=== PATIENT | female | born 1970 | race Caucasian/White ===

== ENCOUNTER 2017-02-05 17:25 | Emergency (ER) | payer MEDICAID ==
[2017-02-05] MEDS ORDERED: HYDROmorphone 1 MG/ML SYRINGE IM STA (18:03)
[2017-02-05] MEDS ORDERED: CLINDAMYCIN 150 MG CAPSULE PO STA (18:03)
[2017-02-05] MEDS ORDERED: HYDROmorphone 1 MG/ML SYRINGE ONE (18:06)
--- NOTE | 2017-02-05 18:06 | ED Physician Documentation ---
PD HPI SKIN - Stated complaint Stated Complaint: RT THIGH SORE - Chief complaint Chief Complaint: Wound - History obtained from History obtained from: Patient - History of Present Illness Timing - onset: Other (2 days of increasingly painful lesion in the right inguinal crease with spontaneous drainage today which smells bad but no measured fevers.) Review of Systems Constitutional: denies: Fever, Chills Nose: denies: Rhinorrhea / runny nose, Congestion GI: reports: Reviewed and negative PD PAST MEDICAL HISTORY - Past Medical History Cardiovascular: Hypertension Respiratory: None Neuro: Other Endocrine/Autoimmune: None GI: GERD 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 : None HEENT: None Psych: Anxiety, ADD/ADHD Musculoskeletal: Osteoarthritis, Chronic back pain Derm: None - Past Surgical History Past Surgical History: Yes General: Cholecystectomy, Hiatal hernia repair - Present Medications Home Medications: Ambulatory Orders Medication Instructions Recorded Confirmed Lisinopril 40 mg PO DAILY 01/06/15 10/07/15 Hydrocodone/Acetaminophen 1 05/27/15 10/07/15 [Hydrocodon-Acetaminoph 7.5-325] Omeprazole [Prilosec] 20 mg PO 05/27/15 10/07/15 Ranitidine HCl [Zantac] 150 mg PO DAILY 28 Days 05/31/15 10/07/15 Alprazolam [Xanax] 0.5 mg PO 10/07/15 10/07/15 Benzonatate [Tessalon] 100 mg PO TID PRN #15 capsule 10/07/15 HYDROcod/ACETAM 5/325 [[place] 5/325] 1 - 2 ea PO Q6H PRN #20 tablet 10/07/15 HYDROcod/ACETAM 5/325 [[place] 5/325] 1 - 2 ea PO Q6H PRN #20 tablet 04/05/16 Clindamycin [Cleocin] 300 mg PO Q6H 10 Days 02/05/17 - Allergies Allergies/Adverse Reactions: Allergies Allergy/AdvReac Type Severity Reaction Status Date / Time iodine Allergy Unknown Verified 02/05/17 17:49 Penicillins Allergy Nausea Verified 02/05/17 17:49 shellfish derived Allergy Unknown Verified 02/05/17 17:49 - Social History Does the pt smoke?: Yes Smoking Status: Current every day smoker Does the pt drink ETOH?: Yes Does the pt have substance abuse?: No - Immunizations Immunizations are current?: Yes - POLST Patient has POLST: No PD ED PE NORMAL - Vitals Vital signs reviewed: Yes - General General: Alert and oriented X 3, No acute distress - Abdomen Abdomen: Soft, Non tender - Derm Derm: Other (Exam done with Cinthia flores at bedside given that it is in her groin. In the right inguinal crease there is a completely drained abscess with some residual cellulitis but no significant drainage or fluctuance. A culture was sent during exam.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, Normal speech - Psych Psych: Normal mood, Normal affect Results - Vitals Vitals: Vital Signs - 24 hr 02/05/17 17:46 Temperature 36.3 C L Heart Rate 94 Respiratory 14 Rate Blood Pressure 137/91 H O2 Saturation 100 Oxygen O2 Source Room air PD MEDICAL DECISION MAKING - ED course ED course: She has an abscess that is completely self drained, but there is some residual cellulitis, culture was obtained and she was started on antibiotics. She declined home-going painkillers. Departure - Departure Disposition: Home, Self Care Clinical Impression: Abscess Condition: Good Record reviewed to determine appropriate education?: Yes Instructions: ED Abscess IandD Prescriptions: Clindamycin [Cleocin] 300 mg PO Q6H 10 Days Comments: Schedule a wound check with your physician in 2 days time (Sunday). Your blood pressure was elevated today on check in to the emergency department. This does not mean that you have hypertension, it is a common phenomenon to check into the emergency department and have elevated blood pressure. I recommend that you see your primary care physician within the week to have it rechecked when you're feeling better. As we discussed we will culture your wound, this results should be done in 48- 72 hours. If an antibiotic change is necessary we will call you. Return if worse in the meantime, especially if you develop increased pain or fevers or cannot keep down the medication.
[2017-02-05] MEDS ORDERED: CLINDAMYCIN 150 MG CAPSULE PO ONE (18:07)
[2017-02-05 18:21] VITALS: BP 148/74
== END 2017-02-05 18:19 | disposition home or self-care (01) ==
LOC: ED 17:25
DX: L02.214 Cutaneous abscess of groin (principal); L03.314 Cellulitis of groin; I10 Essential (primary) hypertension; F17.200 Nicotine dependence, unspecified, uncomplicated
CPT/HCPCS: 87070; 87205; 96372; 99283; A9270; J1170

== ENCOUNTER 2017-04-09 08:00 | Outpatient (CLI) | payer MEDICAID ==
[2017-04-12 21:41] LABS: ALPHAHYDROXYALPRAZOLAM 52 ng/mL (< 25); AMINOCLONAZEPAM NEGATIVE ng/mL (< 25); AMPHETAMINES NEGATIVE ng/mL (< 500); BARBITURATES NEGATIVE ng/mL (< 300); BENZODIAZEPINES POSITIVE ng/mL (< 100); CREATININE 40.2 mg/dL (>= 20.0); HYDROXYETHYLFLURAZEPAM NEGATIVE ng/mL (< 50); MARIJUANA METABOLITE NEGATIVE ng/mL (< 20); MEDMATCH AMINOCLONAZEPAM CONSISTENT (-); MEDMATCH AMPHETAMINES CONSISTENT (-); MEDMATCH AOH-ALPRAZOLAM INCONSISTENT (-); MEDMATCH AOH-MIDAZOLAM CONSISTENT (-); MEDMATCH AOH-TRIAZOLAM CONSISTENT (-); MEDMATCH BARBITURATES CONSISTENT (-); MEDMATCH COCAINE METAB CONSISTENT (-); MEDMATCH CODEINE CONSISTENT (-); MEDMATCH HYDROCODONE CONSISTENT (()); MEDMATCH HYDROMORPHONE CONSISTENT (()); MEDMATCH LORAZEPAM CONSISTENT (-); MEDMATCH MARIJUANA METAB CONSISTENT (-); MEDMATCH METHADONE METAB CONSISTENT (-); MEDMATCH MORPHINE CONSISTENT (-); MEDMATCH NORDIAZEPAM CONSISTENT (-); MEDMATCH NORHYDROCODONE CONSISTENT (()); MEDMATCH OXAZEPAM CONSISTENT (-); MEDMATCH OXYCODONE CONSISTENT (-); MEDMATCH PHENCYCLIDINE CONSISTENT (-); MEDMATCH TEMAZEPAM CONSISTENT (-); METHADONE METABOLITE NEGATIVE ng/mL (< 100); NORHYDROCODONE 606 ng/mL (< 50); OPIATES POSITIVE ng/mL (< 100); OXAZEPAM NEGATIVE ng/mL (< 50); OXIDANT Negative mcg/mL (< 200); PHENCYCLIDINE NEGATIVE ng/mL (< 25); PRESCRIBED DRUG 1 Hydrocodone (())
== END 2017-04-09 08:01 | disposition home or self-care (01) ==
LOC: LAB.R 08:00
PROVIDERS: ATTEND Nurse Practitioner Family
DX: G89.29 Other chronic pain (principal); Z79.891 Long term (current) use of opiate analgesic
CPT/HCPCS: 80307

== ENCOUNTER 2017-05-03 08:20 | Outpatient (CLI) | payer MEDICAID ==
--- NOTE | 2017-05-04 14:05 | Mammography Report ---
DIGITAL SCREENING MAMMOGRAM: 05/03/2017 CLINICAL INDICATION: A 47-year-old for baseline. TECHNIQUE: Routine CC and MLO projections were obtained of the breasts. FINDINGS: The breasts demonstrate scattered fibroglandular densities bilaterally. Coarse, typically benign calcifications are present. No suspicious masses, clustered microcalcifications, or regions of architectural distortion are identified. IMPRESSION: BENIGN FINDINGS. RECOMMENDATION: Routine annual screening unless otherwise clinically indicated. BIRADS CATEGORY 2 - BENIGN FINDINGS. STANDARD QUALIFYING STATEMENTS 1. This examination was reviewed with the aid of Computer-Aided Detection (CAD). 2. A negative or benign imaging report should not delay biopsy if clinically suspicious findings are present. Consider surgical consultation if warranted. More than 5% of cancers are not identified by i maging. 3. Dense breasts may obscure an underlying neoplasm. JOB #: [id number] EXT JOB #:[id number]
== END 2017-05-03 08:21 | disposition home or self-care (01) ==
LOC: DI 08:20
PROVIDERS: ATTEND Nurse Practitioner Family
DX: Z12.31 Encounter for screening mammogram for malignant neoplasm of breast (principal)
CPT/HCPCS: 77067

== ENCOUNTER 2017-09-17 08:00 | Outpatient (CLI) | payer MEDICAID | END 2017-09-17 08:01 | disposition home or self-care (01) | LOC: LAB.R 08:00 | PROVIDERS: ATTEND Nurse Practitioner Family | DX: Z79.891 Long term (current) use of opiate analgesic (principal) | CPT/HCPCS: 80307; 80321; 80346; 80361; 80365; 81599 ==

== ENCOUNTER 2017-09-28 09:26 | Outpatient (CLI) | payer MEDICAID ==
--- NOTE | 2017-09-28 14:10 | XRAY Report ---
THREE VIEW LUMBAR SPINE: 09/28/2017 CLINICAL INDICATION: Lumbar disk disease. COMPARISON: MRI of 01/23/2012. FINDINGS: AP, lateral, coned down views of the lumbar spine demonstrate minimal degenerative disk and facet disease. There is no evidence of fracture or subluxation. The bowel gas pattern appears normal. Incidental note is made of surgical clips from cholecystectomy and an IUD in the pelvis. IMPRESSION: MINIMAL DEGENERATIVE DISK AND FACET DISEASE. TD: 09/28/2017 14:08
== END 2017-09-28 09:27 | disposition home or self-care (01) ==
LOC: DI.S 09:26
PROVIDERS: ATTEND Nurse Practitioner Family
DX: M51.36 Other intervertebral disc degeneration, lumbar region (principal); M47.896 Other spondylosis, lumbar region
CPT/HCPCS: 72100

== ENCOUNTER 2017-10-06 07:45 | Outpatient (CLI) | payer MEDICAID ==
--- NOTE | 2017-10-06 13:39 | MRI Preliminary Report ---
Exam: MRI LUMBAR SPINE W/O IMPRESSION: 1. Xkdk-hf-briecxlb degenerative disk changes, slightly progressed. 2. Mild degenerative disk changes, similar. 3. Disk bulges, facet hypertrophy, and prominent epidural fat results in minimal central canal stenos is at L3-L4 and L4-L5, similar. 4. Small central disk protrusion with increased focal high intensity zone at L5-S1. This may contact the bilateral traversing S1 nerve roots. 5. Mild neural foramen stenosis at L4-L5 bilaterally and L5-S1 bilaterally. Comment: The following findings are so common in adults without low back pain that while we report th eir presence, they must be interpreted with caution and in the context of the clinical situation. (Re iva Veronica et al, Spine 2001) Prevalence of findings in patients without low back pain: Disk degeneration (any evidence): 92% Disk desiccation/T2 signal loss: 83% Disk height loss: 56% Disk bulge: 64% Disk protrusion: 32% Annular tear/high intensity zone: 38% [facility] SITE ID: [id number]
--- NOTE | 2017-10-06 15:06 | MRI Report ---
EXAM: MRI LUMBAR SPINE WITHOUT CONTRAST EXAM DATE: 10/06/2017 08:46 AM. CLINICAL HISTORY: Lumbar spine stenosis, lumbar disk disease. Left foot numbness/tingling with pain. COMPARISON: MRI 01/23/2012. TECHNIQUE: Multiplanar, multisequence T1-weighted and fluid-sensitive sequences of the lumbar spine f rom T12 to S1 without contrast. Other: None. FINDINGS: Spinal Cord: The conus terminates at T12-L1. The conus medullaris and cauda equina are unremarkable. L4 measuring 13 mm. Alignment: No scoliosis. 2-3 mm retrolisthesis at L5 on S1. Bone Marrow: Five fyi-elk-gafxvss lumbar vertebral bodies are assumed. Mild superior endplate irregul arity and likely Schmorl's node at T12, unchanged. No acute fracture. Mild fatty endplate changes at L5-S1 and minimal diskogenic edema. Disk Levels/Facets: Disk desiccation at L4-L5. Disk desiccation and mild disk height loss at L5-S1. T11-T12: Sagittal images only. Minimal disk bulge. Mild bilateral facet and ligamentum flavum hypertr ophy. Mild right and minimal left neural foramen stenosis. T12-L1: Unremarkable. L1-L2: Mild bilateral facet and ligamentum flavum hypertrophy. No stenosis. This is similar. L2-L3: Mild bilateral facet and ligamentum flavum hypertrophy, slightly progressed. Prominent epidura l fat minimally effaces the central canal. This is similar. L3-L4: Small bilobed disk bulge. Knyx-yw-xbqumxtn bilateral facet hypertrophy, slightly progressed. P rominent epidural fat contributes to minimal central canal stenosis. Minimal bilateral neural foramen stenosis. L4-L5: Small broad-based disk bulge. Mavq-ku-ohomwnfk right and moderate left facet and ligamentum fl avum hypertrophy, slightly progressed. Prominent epidural fat minimally effaces the central canal. Mi ld bilateral neural foramen stenosis. L5-S1: Small broad-based disk bulge with superimposed small central disk protrusion and increased foc al high intensity zone. Kbiw-ik-ihdvqwdk bilateral facet and ligamentum flavum hypertrophy, slightly progressed. Disk protrusion may contact the bilateral traversing S1 nerve roots. Mild bilateral neura l foramen stenosis. Musculature: Moderate fatty atrophy in the paraspinous musculature. Minimal reactive edema adjacent t o the lower lumbar facets. Other: The partially visualized retroperitoneum is unremarkable. IMPRESSION: 1. Aspk-kf-pperdlpk degenerative disk changes, slightly progressed. 2. Mild degenerative disk changes, similar. 3. Disk bulges, facet hypertrophy, and prominent epidural fat results in minimal central canal stenos is at L3-L4 and L4-L5, similar. 4. Small central disk protrusion with increased focal high intensity zone at L5-S1. This may contact the bilateral traversing S1 nerve roots. 5. Mild neural foramen stenosis at L4-L5 bilaterally and L5-S1 bilaterally. Comment: The following findings are so common in adults without low back pain that while we report th eir presence, they must be interpreted with caution and in the context of the clinical situation. (Re iva Veronica et al, Spine 2001) Prevalence of findings in patients without low back pain: Disk degeneration (any evidence): 92% Disk desiccation/T2 signal loss: 83% Disk height loss: 56% Disk bulge: 64% Disk protrusion: 32% Annular tear/high intensity zone: 38% [facility] Referring Provider Line: [phone] SITE ID: [id number]
== END 2017-10-06 07:46 | disposition home or self-care (01) ==
LOC: DI 07:45
PROVIDERS: ATTEND Nurse Practitioner Family
DX: M51.36 Other intervertebral disc degeneration, lumbar region (principal); M51.34 Other intervertebral disc degeneration, thoracic region; M47.896 Other spondylosis, lumbar region; M47.894 Other spondylosis, thoracic region; M51.27 Other intervertebral disc displacement, lumbosacral region; M47.897 Other spondylosis, lumbosacral region
CPT/HCPCS: 72148

== ENCOUNTER 2017-11-03 07:51 | Outpatient (CLI) | payer MEDICAID ==
--- NOTE | 2017-11-03 13:51 | MRI Report ---
EXAM: RIGHT ELBOW MRI WITHOUT CONTRAST EXAM DATE: 11/03/2017 08:58 AM. CLINICAL HISTORY: Two prior right elbow fractures. Last less than 2 years ago. COMPARISON: 05/04/2016. TECHNIQUE: Multiplanar, multisequence T1-weighted and fluid-sensitive sequences of the elbow without contrast. Other: None. FINDINGS: Bones: No fractures or subluxations. No marrow edema. No bone lesions. Articular Cartilage: There is focal thinning of the hyaline cartilage of the lateral half of the radi al head. There is mild thinning of the hyaline cartilage of the humeral ulnar joint. Ligaments: The ulnar collateral, lateral ulnar collateral, radial collateral, and annular ligaments a re intact. Tendons: The common flexor origin appears normal. There is high T2 signal within the common extensor origin consistent with a partial-thickness tear. There is a multiloculated cyst measuring up to 6 x 2 6 x 13 mm in the lateral head of the triceps posterior to the lateral humeral condyle and epicondyle. They appear to communicate with a partial-thickness tear of the common extensor origin. Slight increase in T2 signal in the distal triceps tendon, suggesting tendinosis or partial thickness tear. Musculature: No edema or fatty atrophy. Other: The cubital tunnel and ulnar nerve are unremarkable. No effusion. The subcutaneous tissues are unremarkable. IMPRESSION: 1. Partial-thickness tear of the common extensor origin with an adjacent multiloculated paraarticular cyst in the medial head of the triceps. 2. Tendinosis of partial-thickness tear of the distal triceps tendon. [facility]CULOS[facility]IOLOG[facility] SECTION Referring Provider Line: [phone] SITE ID: [id number]
== END 2017-11-03 07:52 | disposition home or self-care (01) ==
LOC: DI 07:51
PROVIDERS: ATTEND Orthopaedic Surgery
DX: S56.511A Strain of other extensor muscle, fascia and tendon at forearm level, right arm, initial encounter (principal); S46.311A Strain of muscle, fascia and tendon of triceps, right arm, initial encounter

== ENCOUNTER 2017-11-20 08:55 | Day surgery (SDC) | payer MEDICAID ==
[2017-11-20] MEDS ORDERED: LACTATED RINGERS 1,000 ML IV ONE (09:44)
[2017-11-20] MEDS ORDERED: MIDAZOLAM 2 MG/2 ML VIAL ONE ×2 (10:48→11:06)
[2017-11-20] MEDS ORDERED: ceFAZolin 1 GM VIAL ONE (10:50)
[2017-11-20] MEDS ORDERED: BUPIVACAINE 0.5%-EPI 1:200000 PF 30 ML VIAL SUBQ ONE ×2 (11:30)
[2017-11-20] MEDS ORDERED: BUPIVACAINE 0.5%-EPI 1:200000 PF 10 ML VIAL ONE (11:36)
[2017-11-20] MEDS ORDERED: DEXAMETHASONE 4 MG/ML VIAL IVP ONE (12:00)
[2017-11-20] MEDS ORDERED: fentaNYL 250 MCG/5 ML VIAL IVP ONE (12:00)
[2017-11-20] MEDS ORDERED: KETOROLAC 30 MG/ML VIAL IVP ONE (12:00)
[2017-11-20] MEDS ORDERED: PROPOFOL 200 MG/20 ML VIAL IVP ONE (12:00)
[2017-11-20] MEDS ORDERED: ONDANSETRON 4 MG/2 ML VIAL IVP ONE (12:00)
[2017-11-20] MEDS: HYDROmorphone 1 MG/ML CARPUJECT ONE ×4 (12:15→12:56)
[2017-11-20 13:14] VITALS: BP 138/88
--- NOTE | 2017-11-21 11:48 | OPERATIVE REPORT ---
DATE OF SERVICE: 11/20/2017 Physician: Carolyn Park MD PREOPERATIVE DIAGNOSIS: Right elbow suspected ganglion mass. POSTOPERATIVE DIAGNOSIS: Right elbow suspected ganglion mass. NAME OF PROCEDURE: Right elbow arthrotomy and ganglion excision. SURGEON: Carolyn Park MD ANESTHESIA: General. INDICATIONS FOR SURGERY: The patient is a 47-year-old female who reports a painful right elbow with lateral soft tissue swelling. She has been evaluated and found to have tenderness in that site with slight fullness and a positive MRI scan suggesting an intramuscular ganglion that also was confluent to the lateral elbow joint. Recommendation is for surgical excision with arthrotomy. FINDINGS AT SURGERY: The patient's ganglion was multilobular and located at the lateral elbow partly in the substance of the supinator muscle and partly adjacent to the posterolateral joint. The contents of the ganglion were pink ganglion fluid with no other tissue abnormality. DESCRIPTION OF OPERATIVE PROCEDURE: The patient was taken to the operating room, was given a general anesthetic in a supine position with a tourniquet high on the right arm. The elbow and forearm were sterilely prepped and draped in a standard fashion. Surgical timeout was undertaken. A lateral incision of about 2 inches in length was made, centered on the area of prominence at the posterolateral elbow. A careful dissection was taken down to the muscular plane, where the muscle was identified and dissection then taken through muscle fibers to directly down to the joint surface. Ganglion fluid and mass were encountered in the muscle and adjacent to the joint in a multilobular configuration, and each of these areas were debrided sharply and with a rongeur to remove cyst lining and exuding of cyst contents. The joint itself did not appear to be abnormal as viewed from the small window. The muscle fibers were not necrotic and there was no disruption of that muscle in general. Once the area had carefully been inspected and all ganglion tissue sharply excised, the area was flushed with irrigation and the tourniquet deflated, at which point there was very little bleeding. Closure was then undertaken using 2-0 Vicryl interrupted to repair a small rent made in the line of the supinator fibers and to repair the overlying fascia. The subcutaneous tissue was closed with 2-0 Vicryl and 3-0 Vicryl, and the skin with Monocryl closure. Sterile dressings were applied. The patient was placed in a well-padded posterior elbow splint and taken to recovery room in stable condition. The estimated blood loss for the procedure was minimal. Complications were none, and sponge and needle counts correct. TD: 11/21/2017 11:47
== END 2017-11-20 08:56 | disposition home or self-care (01) ==
LOC: SDS 08:55
PROVIDERS: ATTEND Orthopaedic Surgery
PROC: 0KB70ZZ Excision of Right Upper Arm Muscle, Open Approach (ICD-10-PCS; 2017-11-20)
PROC: 0JBD0ZZ Excision of Right Upper Arm Subcutaneous Tissue and Fascia, Open Approach (ICD-10-PCS; principal; 2017-11-20 10:00)
DX: M67.421 Ganglion, right elbow (principal); I10 Essential (primary) hypertension
CPT/HCPCS: 24076; J1170; J3010; J7120

== ENCOUNTER 2018-01-29 07:49 | Emergency (ER) | payer MEDICAID ==
[2018-01-29] MEDS ORDERED: fentaNYL 100 MCG/2 ML VIAL IVP STA ×3 (08:27→14:54)
[2018-01-29] MEDS ORDERED: LORazepam 2 MG/ML VIAL IVP STA ×2 (08:27→15:18)
[2018-01-29] MEDS ORDERED: ONDANSETRON 4 MG/2 ML VIAL IVP STA (08:28)
[2018-01-29] MEDS ORDERED: DEXAMETHASONE 10 MG/ML VIAL PO STA (08:28)
--- NOTE | 2018-01-29 08:31 | ED Physician Documentation ---
PD HPI CHEST PAIN - Stated complaint Stated Complaint: BACK PX,CHEST PX, RT ARM NUMBNESS - Chief complaint Chief Complaint: Cardiac - History obtained from History obtained from: Patient, Family, EMS - History of Present Illness Timing - onset: Enter time (399), Today Timing - onset during: Sleep Timing - duration: Hours Timing - details: Abrupt onset, Still present Quality: Pressure, Sharp, Pain Location: Substernal, Right chest Radiation: Neck, Back Improved by: Nothing Worsened by: Inspiration, Movement, Palpation Associated symptoms: Diaphoresis, Nausea Similar symptoms before: Diagnosis (cervical disc disease) Recently seen: Other (has had recent proceedure on the right elbow for ganglion removal about 2 months ago.) - Additional information Additional information: 48-year-old female with chronic pain and a history of cervical radiculopathy has had episodes of pain in her anterior chest and neck over the past years. She has had previous workup including CT angios of the chest and MR of the neck. She has had cervical spine epidural steroid injection with resultant meningitis. She is recently been in to have a surgical procedure for removal of a ganglion in the right elbow. About 2 months ago. This morning she awoke at 4:00 with severe pain in her neck radiating down her right arm and her right anterior chest she has been very uncomfortable with this and her alprazolam and hydrocodone have not helped with this pain. Review of Systems Constitutional: denies: Fever Eyes: denies: Decreased vision Ears: denies: Ear pain Nose: denies: Congestion Throat: denies: Sore throat Cardiac: reports: Chest pain / pressure. denies: Palpitations, Pedal edema, Calf pain Respiratory: reports: Dyspnea. denies: Cough GI: denies: Abdominal Pain, Nausea, Vomiting : denies: Dysuria, Frequency Skin: denies: Rash Musculoskeletal: reports: Neck pain, Back pain, Extremity pain Neurologic: reports: Focal weakness, Numbness. 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 : Chronic bladder infection HEENT: Chronic vision loss, Chronic sinusitis, Chronic hearing loss Psych: Depression, Anxiety, ADD/ADHD, Post traumatic stress disorder, Claustrophobia Musculoskeletal: Osteoarthritis, Other Derm: None - Past Surgical History Past Surgical History: Yes General: Cholecystectomy, Other Ortho: Other - Present Medications Home Medications: Ambulatory Orders Medication Instructions Recorded Confirmed Lisinopril 40 mg PO DAILY 01/06/15 11/20/17 Hydrocodone/Acetaminophen 7.5 mg PO QID 05/27/15 11/20/17 [Hydrocodon-Acetaminoph 7.5-325] Omeprazole [Prilosec] 40 mg PO DAILY 05/27/15 11/20/17 Ranitidine HCl [Zantac] 150 mg PO DAILY 28 Days tablet 05/31/15 11/20/17 Alprazolam [Xanax] 1 mg PO ONCE PRN 10/07/15 11/20/17 - Allergies Allergies/Adverse Reactions: Allergies Allergy/AdvReac Type Severity Reaction Status Date / Time etodolac Allergy Unknown Verified 11/20/17 09:20 gabapentin Allergy Unknown Verified 11/20/17 09:20 iodine Allergy Unknown Verified 02/05/17 17:49 nortriptyline Allergy Unknown Verified 11/20/17 09:20 Penicillins Allergy Nausea Verified 02/05/17 17:49 shellfish derived Allergy Unknown Verified 02/05/17 17:49 codeine AdvReac Itching Verified 11/20/17 09:20 methadone AdvReac Nausea Verified 11/20/17 09:20 - Social History Does the pt smoke?: Yes Smoking Status: Current every day smoker Does the pt drink ETOH?: Yes Does the pt have substance abuse?: No - Immunizations Immunizations are current?: Yes - POLST Patient has POLST: No PD ED PE NORMAL - Vitals Vital signs reviewed: Yes (marked hypertension ) - General General: Alert and oriented X 3, Well developed/nourished, Other (48 y/o female rocking in the bed in pain with dramatic pain behavior and hyperventilation. ) - HEENT HEENT: Atraumatic, PERRL, EOMI - Neck Neck: Supple, no meningeal sign, Other (There is tenderness to the cervical spine paraspinous on the right side. ) - Cardiac Cardiac: RRR, No murmur - Respiratory Respiratory: No respiratory distress, Clear bilaterally - Abdomen Abdomen: Soft, Non tender - Back Back: No CVA TTP, No spinal TTP - Derm Derm: Normal color, Warm and dry, No rash - Extremities Extremities: No deformity, No edema - Neuro Neuro: Alert and oriented X 3, No motor deficit, No sensory deficit, Normal speech Eye Opening: Spontaneous Motor: Obeys Commands Verbal: Oriented GCS Score: 15 - Psych Psych: Normal affect, Other (mood is helpless ) Results - Vitals Vitals: Vital Signs - 24 hr 01/29/18 01/29/18 01/29/18 08:03 09:47 09:50 Temperature 36.5 C Heart Rate 92 87 88 Respiratory 20 13 18 Rate Blood Pressure 204/136 H 167/123 H 141/101 H O2 Saturation 100 98 96 01/29/18 01/29/18 10:06 11:09 Temperature Heart Rate 85 85 Respiratory 16 18 Rate Blood Pressure 140/92 H 162/111 H O2 Saturation 99 99 Oxygen O2 Source Room air - EKG (time done) 0916 Rate: Rate (enter#) (97) [place]: LAD QRS: Low voltage Ischemia: ST depression (inferior leads. ) Compare to prior EKG: Changed from prior EKG (SPT 01-06-2015 ST depression has occured in the inferior leads. ) Computer interpretation: Agree with computer - Labs Labs: Laboratory Tests 01/29/18 01/29/18 01/29/18 08:30 08:30 08:30 WBC 7.9 RBC 4.56 Hgb 15.7 Hct 46.5 MCV 102.0 H MCH 34.5 H MCHC 33.8 RDW 14.2 Plt Count 169 MPV 9.1 Neut # (Auto) 3.9 Lymph # (Auto) 2.9 [place] # (Auto) 0.9 Eos # (Auto) 0.2 Baso # (Auto) 0.1 Absolute Nucleated RBC 0.00 Nucleated RBC % 0.1 Sodium 134 L Potassium 4.5 Chloride 100 L Carbon Dioxide 25 Anion Gap 9.0 BUN 6 Creatinine 0.7 Estimated GFR (MDRD) 89 Glucose 170 H Calcium 9.4 Total Bilirubin 0.7 AST 42 ALT 33 Alkaline Phosphatase 81 Troponin I 0.32 Total Protein 7.7 Albumin 3.6 Globulin 4.1 Albumin/Globulin Ratio 0.9 L Lipase 24 Urine Color Urine Clarity Urine pH Ur Specific [place] Urine Protein Urine Glucose (UA) Urine Ketones Urine Occult Blood Urine Nitrite Urine Bilirubin Urine Urobilinogen Ur Leukocyte Esterase Ur Microscopic Review Urine Culture Comments Urine Opiates Screen Ur Oxycodone Screen Urine Methadone Screen Ur Propoxyphene Screen Ur Barbiturates Screen Ur Tricyclics Screen Ur Phencyclidine Scrn Ur Amphetamine Screen U Methamphetamines Scrn U Benzodiazepines Scrn Urine Cocaine Screen U Cannabinoids Screen 01/29/18 10:10 WBC RBC Hgb Hct MCV MCH MCHC RDW Plt Count MPV Neut # (Auto) Lymph # (Auto) [place] # (Auto) Eos # (Auto) Baso # (Auto) Absolute Nucleated RBC Nucleated RBC % Sodium Potassium Chloride Carbon Dioxide Anion Gap BUN Creatinine Estimated GFR (MDRD) Glucose Calcium Total Bilirubin AST ALT Alkaline Phosphatase Troponin I Total Protein Albumin Globulin Albumin/Globulin Ratio Lipase Urine Color YELLOW Urine Clarity CLEAR Urine pH 7.0 Ur Specific [place] 1.010 Urine Protein NEGATIVE Urine Glucose (UA) NEGATIVE Urine Ketones NEGATIVE Urine Occult Blood NEGATIVE Urine Nitrite NEGATIVE Urine Bilirubin NEGATIVE Urine Urobilinogen 0.2 (NORMAL) Ur Leukocyte Esterase NEGATIVE Ur Microscopic Review NOT INDICATED Urine Culture Comments NOT INDICATED Urine Opiates Screen POSITIVE H Ur Oxycodone Screen NEGATIVE Urine Methadone Screen NEGATIVE Ur Propoxyphene Screen NEGATIVE Ur Barbiturates Screen NEGATIVE Ur Tricyclics Screen NEGATIVE Ur Phencyclidine Scrn NEGATIVE Ur Amphetamine Screen NEGATIVE U Methamphetamines Scrn NEGATIVE U Benzodiazepines Scrn POSITIVE H Urine Cocaine Screen NEGATIVE U Cannabinoids Screen NEGATIVE - Rads (name of study) 2 veiw chest Radiology: Prelim report reviewed (Impression: Normal two-view chest radiography for age and body habitus. No significant change from prior.), EMP read indepedently, See rad report CT angio aorta Radiology: Prelim report reviewed (Impression: 1. No aortic dissection or other acute cardiopulmonary abnormality demonstrated. 2. Mild to moderate patchy groundglass changes in the lungs bilaterally. Findings favor atypical infectious/inflammatory process. Asymmetric pulmonary edema is felt less likely. 3. No effusion or pneumothorax.), EMP read indepedently, See rad report PD MEDICAL DECISION MAKING - ED course Complexity details: reviewed old records, reviewed results, re-evaluated patient , considered differential, d/w patient, d/w family ED course: 40-year-old female with history of cervical radiculopathy has developed acute neck pain radiating down her arm and chest pain this morning. She does have acute hypertensive urgency with marked elevated diastolic blood pressure and an elevated troponin. Electrocardiogram is without ST elevation. She is administered 20 mg of labetalol intravenously. Dr. Ailyn Osuna (cardiology [facility]) is consulted in the case and recommends scan for dissection, heparin and transfer. 1043. CT angio chest is negative for dissection and the patient is started on heparin, given aspirin and transferred to [facility] with Dr. Coronel accepting. - Sepsis Event Vital Signs: Vital Signs - 24 hr 01/29/18 01/29/18 01/29/18 08:03 09:47 09:50 Temperature 36.5 C Heart Rate 92 87 88 Respiratory 20 13 18 Rate Blood Pressure 204/136 H 167/123 H 141/101 H O2 Saturation 100 98 96 01/29/18 01/29/18 10:06 11:09 Temperature Heart Rate 85 85 Respiratory 16 18 Rate Blood Pressure 140/92 H 162/111 H O2 Saturation 99 99 Oxygen O2 Source Room air Departure - Departure Disposition: 02 Transfer Acute Care Hosp Clinical Impression: Muscle spasm of back, Cervical radiculopathy, Hypertensive emergency without congestive heart failure, NSTEMI (non-ST elevated myocardial infarction)
[2018-01-29 08:35] LABS: BASOPHILS # (AUTO) 0.1 10^3/uL (0.0-0.1); BASOPHILS % (AUTO) 1.2 %; EOSINOPHILS # (AUTO) 0.2 10^3/uL (0.0-0.7); EOSINOPHILS % (AUTO) 2.1 %; HGB - HEMOGLOBIN 15.7 g/dL (12.0-16.0); LYMPHOCYTES # (AUTO) 2.9 10^3/uL (1.5-3.5); LYMPHOCYTES % (AUTO) 36.4 %; MEAN CORPUSCULAR HEMOGLOBIN 34.5 pg (27.0-31.0); MEAN CORPUSCULAR HGB CONC 33.8 g/dL (32.0-36.0); MEAN PLATELET VOLUME 9.1 fL (7.9-10.8); MONOCYTES # (AUTO) 0.9 10^3/uL (0.0-1.0); MONOCYTES % (AUTO) 10.8 %; NEUTROPHILS # (AUTO) 3.9 10^3/uL (1.5-6.6); NEUTROPHILS % (AUTO) 49.5 %; PLT - PLATELET COUNT 169 10^3/uL (130-450); RED BLOOD COUNT 4.56 10^6/uL (4.20-5.40); RED CELL DISTRIBUTION WIDTH 14.2 % (12.0-15.0); WHITE BLOOD COUNT 7.9 x10^3/uL (4.8-10.8)
[2018-01-29] MEDS ORDERED: CHERRY SYRUP 10 ML UDC PO ONE (08:57)
[2018-01-29 09:05] LABS: ALBUMIN 3.6 g/dL (3.2-5.5); ALBUMIN/GLOBULIN RATIO 0.9 (1.0-2.2); BILIRUBIN,TOTAL 0.7 mg/dL (0.2-1.0); CALCIUM 9.4 mg/dL (8.5-10.3); CREATININE 0.7 mg/dL (0.4-1.0); TOTAL PROTEIN 7.7 g/dL (6.7-8.2)
[2018-01-29] MEDS ORDERED: LABETALOL 20 MG/4 ML SYRINGE IVP ONE (09:18)
[2018-01-29] MEDS ORDERED: LABETALOL 5 MG/1 ML 20 ML MDV IVP ONE (09:30)
[2018-01-29 10:29] LABS: MUDS CUTOFF CONCENTRATIONS CUTOFF CONC BELOW:
[2018-01-29 10:38] LABS: BILIRUBIN,URINE NEGATIVE (NEGATIVE); GLUCOSE, URINE (UA) NEGATIVE (NEGATIVE); KETONES,URINE (UA) NEGATIVE (NEGATIVE); LEUKOCYTE ESTERASE, URINE NEGATIVE (NEGATIVE); NITRITE,URINE NEGATIVE (NEGATIVE); OCCULT BLOOD,URINE NEGATIVE (NEGATIVE); PROTEIN,URINE NEGATIVE (NEGATIVE); UROBILINOGEN,URINE 0.2 (NORMAL) E.U./dL (NORMAL)
[2018-01-29 10:42] LABS: CLARITY,URINE CLEAR (CLEAR)
[2018-01-29 10:49] LABS: COCAINE SCREEN URINE NEGATIVE (NEGATIVE); METHAMPHETAMINES SCREEN, URINE NEGATIVE (NEGATIVE)
[2018-01-29 10:50] LABS: AMPHETAMINE SCREEN,URINE NEGATIVE (NEGATIVE); BENZODIAZEPINES SCREEN, URINE POSITIVE (NEGATIVE); METHADONE SCREEN, URINE NEGATIVE (NEGATIVE); OPIATE SCREEN, URINE POSITIVE (NEGATIVE); OXYCODONE SCREEN, URINE NEGATIVE (NEGATIVE); PROPOXYPHENE SCREEN, URINE NEGATIVE (NEGATIVE); TRICYCLIC ANTIDEPRESSANT,URINE NEGATIVE (NEGATIVE)
[2018-01-29] MEDS ORDERED: IOPAMIDOL-300 100 ML VIAL ONE (10:57)
[2018-01-29] MEDS ORDERED: diphenhydrAMINE INJ 50 MG/ML VIAL IVP STA (11:00)
--- NOTE | 2018-01-29 11:16 | XRAY Report ---
Procedure Date: 01/29/2018 Accession Number: [id number] / [id number] Procedure: XR - Chest 2 View X-Ray CPT Code: 78008 FULL RESULT: EXAM: CHEST RADIOGRAPHY EXAM DATE: 01/29/2018 09:12 AM. CLINICAL HISTORY: Chest pain. COMPARISON: 10/07/2015. TECHNIQUE: 2 views. FINDINGS: Lungs/Pleura: No focal opacities evident. No pleural effusion. No pneumothorax. Normal volumes. Mediastinum: Heart and mediastinal contours are unremarkable. Other: None. IMPRESSION: Normal 2-view chest radiography for age and body habitus. No significant change from prior. RADIA
[2018-01-29] MEDS ORDERED: IOPAMIDOL-300 100 ML VIAL IVP ONE (11:29)
--- NOTE | 2018-01-29 11:59 | CT Report ---
Procedure Date: 01/29/2018 Accession Number: [id number] / [id number] Procedure: CT - Chest Angio (AORTA) CPT Code: FULL RESULT: EXAM: CT ANGIOGRAM CHEST EXAM DATE: 01/29/2018 11:28 AM. CLINICAL HISTORY: Anterior chest pain. Elevated troponin. COMPARISONS: 05/27/2015. TECHNIQUE: Routine axial helical CT angiographic imaging was performed through the chest. IV Contrast: 100 mL Isovue 300. Reconstructions: Coronal, sagittal, and 3D MIP reconstructions of the aorta. In accordance with CT protocol optimization, one or more of the following dose reduction techniques were utilized for this exam: automated exposure control, adjustment of mA and/or KV based on patient size, or use of iterative reconstructive technique. FINDINGS: Vascular Structures: Left sided aortic arch with aberrant right subclavian artery is seen. No aneurysm, dissection, or significant atherosclerotic disease of the thoracic aorta. The visualized pulmonary, mesenteric, and solid organ vascular structures are also within normal limits. Lungs/Pleura: There is [id number] patchy groundglass changes seen in the lungs bilaterally. No discrete nodule or mass is demonstrated. There is no effusion or pneumothorax. Mediastinum: Normal. No cardiac enlargement or adenopathy. Bones: No significant abnormality. Other: None. IMPRESSION: 1. No aortic dissection or other acute cardiopulmonary abnormality demonstrated. 2. [id number] patchy groundglass changes in the lungs bilaterally. Findings favor atypical infectious/inflammatory process. Asymmetric pulmonary edema is felt less likely. 3. No effusion or pneumothorax. RADIA
[2018-01-29] MEDS ORDERED: HEPARIN 25000UNITS/500ML (D5W) 25,000 UNIT/500 ML BAG IV STA (12:45)
[2018-01-29] MEDS ORDERED: HEPARIN 5,000 UNIT/ML VIAL IVP ONE (12:45)
[2018-01-29] MEDS ORDERED: ASPIRIN CHEW 81 MG TABLET PO STA (12:46)
[2018-01-29 13:38] VITALS: BP 130/85
== END 2018-01-29 15:30 | disposition short-term general hospital (02) ==
LOC: ED 07:49
DX: I21.4 Non-ST elevation (NSTEMI) myocardial infarction (principal); I16.1 Hypertensive emergency; M62.830 Muscle spasm of back; M54.12 Radiculopathy, cervical region; I10 Essential (primary) hypertension; F17.200 Nicotine dependence, unspecified, uncomplicated
CPT/HCPCS: 36415; 71046; 71275; 80053; 80306; 81003; 83690; 84484; 85025; 93005; 96365; 96366; 96375; 96376; 99284; 99285; A9270; J1200; J2060; Q9967; 81001; 87086

== ENCOUNTER 2018-01-29 15:30 | Outpatient (CLI) | payer MEDICAID | END 2018-01-29 15:31 | disposition short-term general hospital (02) | LOC: EMS 15:30 | PROVIDERS: ATTEND Surgery | DX: I21.4 Non-ST elevation (NSTEMI) myocardial infarction (principal) | CPT/HCPCS: A0425; A0426 ==

== ENCOUNTER 2018-02-01 11:59 | Outpatient (CLI) | payer MEDICAID | END 2018-02-01 12:00 | disposition home or self-care (01) | LOC: RT.S 11:59 | PROVIDERS: ATTEND Nurse Practitioner Family | DX: I21.4 Non-ST elevation (NSTEMI) myocardial infarction (principal) | CPT/HCPCS: 93005 ==

== ENCOUNTER 2018-03-11 10:59 | Outpatient (CLI) | payer MEDICAID | END 2018-03-11 11:00 | disposition critical access hospital (66) | LOC: EMS 10:59 | PROVIDERS: ATTEND Surgery | DX: R07.9 Chest pain, unspecified (principal); R61 Generalized hyperhidrosis | CPT/HCPCS: A0425; A0427; A0999 ==

== ENCOUNTER 2018-03-11 11:13 | Inpatient (IN) | payer MEDICAID ==
[2018-03-11] MEDS ORDERED: NITROGLYCERIN 2% PASTE TOP STA (11:18)
[2018-03-11] MEDS ORDERED: MORPHINE 2 MG/ML SYRINGE IVP STA (11:18)
--- NOTE | 2018-03-11 11:23 | ED Physician Documentation ---
History of Present Illness - Stated complaint Stated Complaint: CP - Additonal information Additional information: hx from pt 48 f s/p TX 5 weeks ago tx[address] at [facility] no stent but was told severe coronary vessel dz had abn stress test last week as well has cardio appt tomorrow this am at 1015 developed same discomfort as her recent TX - starts posterior L shoulder then moves anterior with soa no nausea no leg swelling no fever cough hx HTN, no DM, smoker but decreasing Review of Systems Constitutional: denies: Fever Cardiac: reports: Chest pain / pressure Respiratory: reports: Dyspnea GI: denies: Abdominal Pain, Nausea, Vomiting Musculoskeletal: reports: Back pain Endocrine: denies: Easy bruising / bleeding Immunocompromised: denies: Immunocompromised PD PAST MEDICAL HISTORY - Past Medical History Cardiovascular: Hypertension, Arrhythmia, Other Respiratory: Asthma, Other Endocrine/Autoimmune: None GI: None 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 : Chronic bladder infection HEENT: Chronic vision loss, Chronic sinusitis, Chronic hearing loss Psych: Depression, Anxiety, ADD/ADHD, Post traumatic stress disorder, Claustrophobia Musculoskeletal: Osteoarthritis, Other Derm: None - Past Surgical History Past Surgical History: Yes General: Cholecystectomy, Other Ortho: Other - Present Medications Home Medications: Ambulatory Orders Medication Instructions Recorded Confirmed Hydrocodone/Acetaminophen 1 tab PO QID PRN 05/27/15 03/11/18 [Hydrocodon-Acetaminoph 7.5-325] Omeprazole [Prilosec] 20 mg PO BID 05/27/15 03/11/18 Ranitidine HCl [Zantac] 150 mg PO DAILY 28 Days tablet 05/31/15 03/11/18 Alprazolam [Xanax] 1 mg PO DAILY PRN 10/07/15 03/11/18 Atorvastatin Calcium 40 mg PO DAILY 03/11/18 03/11/18 Clopidogrel [Plavix] 75 mg PO DAILY 03/11/18 03/11/18 Lisinopril 40 mg PO DAILY 03/11/18 03/11/18 Metoprolol Tartrate [Metoprolol 25 mg PO BID 03/11/18 03/11/18 Tartrate] Nicotine 21 mg Patch [Nicoderm] 1 each TOP Q24H 03/11/18 03/11/18 Nitroglycerin [Nitroglycerin] 0.4 mg SL .Q5MIN PRN MDD 3 DOSES 03/11/18 03/11/18 - Allergies Allergies/Adverse Reactions: Allergies Allergy/AdvReac Type Severity Reaction Status Date / Time etodolac Allergy Unknown Verified 01/29/18 14:50 gabapentin Allergy Unknown Verified 01/29/18 14:50 iodine Allergy Unknown Verified 01/29/18 14:50 nortriptyline Allergy Unknown Verified 01/29/18 14:50 Penicillins Allergy Nausea Verified 01/29/18 14:50 shellfish derived Allergy Unknown Verified 01/29/18 14:50 codeine AdvReac Itching Verified 01/29/18 14:50 methadone AdvReac Nausea Verified 01/29/18 14:50 - Social History Does the pt smoke?: Yes Smoking Status: Current every day smoker Does the pt drink ETOH?: Yes Does the pt have substance abuse?: No - Immunizations Immunizations are current?: Yes - POLST Patient has POLST: No PD ED PE NORMAL - Vitals Vital signs reviewed: Yes - Neck Neck: Supple, no meningeal sign - Cardiac Cardiac: RRR - Respiratory Respiratory: No respiratory distress, Clear bilaterally - Abdomen Abdomen: Soft, Non tender - Derm Derm: Normal color - Extremities Extremities: No deformity, No edema, No calf tenderness / cord - Neuro Neuro: Alert and oriented X 3 Results - Vitals Vitals: Vital Signs - 24 hr 03/11/18 03/11/18 03/11/18 11:18 11:22 11:57 Temperature 36.5 C Heart Rate 78 80 78 Heart Rate [ Brachial] Respiratory 20 15 16 Rate Blood Pressure 179/117 H 111/82 H 151/108 H Blood Pressure [Right Brachial artery] O2 Saturation 100 98 99 03/11/18 03/11/18 03/11/18 12:50 13:43 15:00 Temperature Heart Rate 81 77 71 Heart Rate [ Brachial] Respiratory 14 14 16 Rate Blood Pressure 114/82 H 119/83 H 112/76 Blood Pressure [Right Brachial artery] O2 Saturation 97 99 97 03/11/18 03/11/18 16:33 17:09 Temperature 36.6 C Heart Rate 68 Heart Rate [ 71 Brachial] Respiratory 18 18 Rate Blood Pressure 114/79 Blood Pressure 128/82 H [Right Brachial artery] O2 Saturation 98 99 Oxygen O2 Source Room air - EKG (time done) 1138 Rate: Rate (enter#) Rhythm: NSR Intervals: Normal [place] - Labs Labs: Laboratory Tests 03/11/18 03/11/18 03/11/18 12:00 12:00 12:00 WBC 5.8 RBC 4.23 Hgb 14.7 Hct 42.2 MCV 99.7 H MCH 34.7 H MCHC 34.8 RDW 12.7 Plt Count 162 MPV 7.9 Neut # (Auto) 2.9 Lymph # (Auto) 2.0 [place] # (Auto) 0.6 Eos # (Auto) 0.1 Baso # (Auto) 0.1 Absolute Nucleated RBC 0.00 Nucleated RBC % 0.0 PT INR Sodium 133 L Potassium 4.8 Chloride 100 L Carbon Dioxide 23 Anion Gap 10.0 BUN 8 Creatinine 0.6 Estimated GFR (MDRD) 107 Glucose 117 H Calcium 9.5 Total Bilirubin 0.8 AST 71 H ALT 71 H Alkaline Phosphatase 86 Troponin I < 0.04 Total Protein 7.9 Albumin 4.3 Globulin 3.6 Albumin/Globulin Ratio 1.2 Lipase 29 03/11/18 03/11/18 12:00 18:25 WBC RBC Hgb Hct MCV MCH MCHC RDW Plt Count MPV Neut # (Auto) Lymph # (Auto) [place] # (Auto) Eos # (Auto) Baso # (Auto) Absolute Nucleated RBC Nucleated RBC % PT 11.4 INR 1.0 Sodium Potassium Chloride Carbon Dioxide Anion Gap BUN Creatinine Estimated GFR (MDRD) Glucose Calcium Total Bilirubin AST ALT Alkaline Phosphatase Troponin I < 0.04 Total Protein Albumin Globulin Albumin/Globulin Ratio Lipase - Rads (name of study) CXR Radiology: See rad report (mild increase lung marking eugene improved from prior ( pt has CTA last ER visit no PE or dossection but some ground glass oapcities that could be asymm edema)) PD MEDICAL DECISION MAKING - ED course ED course: requested records from [facility] but never received paged cardio service station helper at [facility] at number given by transfer center but no response per transfer center, [facility] is on divert for tele / cardio and cannot accept pt anyway her 1st trop is neg feel reasonable to EL at [facility] - will continue to try and get records and d/ s her cardio group etc spoke to [facility] hospitalist at 1500 and she will admit - Sepsis Event Vital Signs: Vital Signs - 24 hr 03/11/18 03/11/18 03/11/18 11:18 11:22 11:57 Temperature 36.5 C Heart Rate 78 80 78 Heart Rate [ Brachial] Respiratory 20 15 16 Rate Blood Pressure 179/117 H 111/82 H 151/108 H Blood Pressure [Right Brachial artery] O2 Saturation 100 98 99 03/11/18 03/11/18 03/11/18 12:50 13:43 15:00 Temperature Heart Rate 81 77 71 Heart Rate [ Brachial] Respiratory 14 14 16 Rate Blood Pressure 114/82 H 119/83 H 112/76 Blood Pressure [Right Brachial artery] O2 Saturation 97 99 97 03/11/18 03/11/18 16:33 17:09 Temperature 36.6 C Heart Rate 68 Heart Rate [ 71 Brachial] Respiratory 18 18 Rate Blood Pressure 114/79 Blood Pressure 128/82 H [Right Brachial artery] O2 Saturation 98 99 Oxygen O2 Source Room air Departure - Departure Disposition: ED Place in Observation Clinical Impression: Chest pain Qualifiers: Chest pain type: unspecified Qualified Code(s): R07.9 - Chest pain, unspecified Condition: Good Discharge Date/Time: 03/11/18 16:00
[2018-03-11 12:16] LABS: BASOPHILS # (AUTO) 0.1 10^3/uL (0.0-0.1); BASOPHILS % (AUTO) 1.1 %; EOSINOPHILS # (AUTO) 0.1 10^3/uL (0.0-0.7); EOSINOPHILS % (AUTO) 2.6 %; HGB - HEMOGLOBIN 14.7 g/dL (12.0-16.0); LYMPHOCYTES % (AUTO) 34.5 %; MEAN CORPUSCULAR HEMOGLOBIN 34.7 pg (27.0-31.0); MEAN CORPUSCULAR HGB CONC 34.8 g/dL (32.0-36.0); MEAN CORPUSCULAR VOLUME 99.7 fL (81.0-99.0); MEAN PLATELET VOLUME 7.9 fL (7.9-10.8); MONOCYTES # (AUTO) 0.6 10^3/uL (0.0-1.0); NEUTROPHILS # (AUTO) 2.9 10^3/uL (1.5-6.6); NEUTROPHILS % (AUTO) 50.8 %; PLT - PLATELET COUNT 162 10^3/uL (130-450); RED BLOOD COUNT 4.23 10^6/uL (4.20-5.40); RED CELL DISTRIBUTION WIDTH 12.7 % (12.0-15.0); WHITE BLOOD COUNT 5.8 x10^3/uL (4.8-10.8)
--- NOTE | 2018-03-11 12:17 | XRAY Report ---
Procedure Date: 03/11/2018 Accession Number: [id number] / [id number] Procedure: XR - Chest 1 View X-Ray CPT Code: 25914 FULL RESULT: EXAM: CHEST RADIOGRAPHY EXAM DATE: 03/11/2018 11:28 AM. CLINICAL HISTORY: Cp. COMPARISON: 2 views 01/29/2018. TECHNIQUE: 1 view. FINDINGS: Lungs/Pleura: Very mild increased markings within the lower lung harley appear similar on the left and mildly improved on the right. A chest CT angiogram from 01/29/2018 and did demonstrate bilateral multifocal groundglass opacities. No pleural effusion. No pneumothorax. Mediastinum: Within exam limitations, the cardiomediastinal contour is normal. Other: None. IMPRESSION: 1. Very mild bibasilar increased markings again demonstrated, mildly improved on the right. No focal consolidation. 2. Otherwise, negative single view chest. RADIA
[2018-03-11 12:23] LABS: ALBUMIN 4.3 g/dL (3.2-5.5); ALBUMIN/GLOBULIN RATIO 1.2 (1.0-2.2); BILIRUBIN,TOTAL 0.8 mg/dL (0.2-1.0); CALCIUM 9.5 mg/dL (8.5-10.3); CREATININE 0.6 mg/dL (0.4-1.0); TOTAL PROTEIN 7.9 g/dL (6.7-8.2)
[2018-03-11 13:20] LABS: PT - PROTHROMBIN TIME 11.4 secs (9.9-12.6)
[2018-03-11] MEDS ORDERED: HYDROcod/ACETAM 7.5 MG/325 MG TABLET PO STA (13:36)
[2018-03-11] MEDS ORDERED: PROCHLORPERAZINE 10 MG/2 ML VIAL IVP PRN (15:43)
[2018-03-11] MEDS ORDERED: ACETAMINOPHEN 325 MG TABLET PO PRN (15:43)
[2018-03-11] MEDS ORDERED: TEMAZEPAM 15 MG CAPSULE PO PRN (15:43)
[2018-03-11] MEDS ORDERED: CLOPIDOGREL 75 MG TABLET PO STA (15:46)
[2018-03-11] MEDS ORDERED: NICOTINE 21 MG PATCH TOP SCH (16:00)
[2018-03-11] MEDS: SODIUM CHLORIDE FLUSH 0.9% 10 ML SYRINGE IVP SCH (17:08)
[2018-03-11] MEDS: HYDROcod/ACETAM 7.5 MG/325 MG TABLET PO PRN (19:19)
[2018-03-11] MEDS: ALPRAZolam 0.25 MG TABLET PO PRN (20:36)
[2018-03-11] MEDS: PANTOPRAZOLE 40 MG TABLET PO SCH (20:37)
[2018-03-11] MEDS: ENOXAPARIN 100 MG/ML SYRINGE SUBQ SCH (20:37)
[2018-03-11] MEDS: METOPROLOL TARTRATE 25 MG TABLET PO SCH (20:37)
[2018-03-11] MEDS: NITROGLYCERIN 2% PASTE TOP SCH (20:38)
[2018-03-11] MEDS: SODIUM CHLORIDE FLUSH 0.9% 10 ML SYRINGE IVP PRN (20:38)
[2018-03-11] MEDS ORDERED: LISINOPRIL 20 MG TABLET PO SCH (21:00)
[2018-03-11] MEDS ORDERED: ATORVASTATIN 40 MG TABLET PO SCH (21:00)
[2018-03-12] MEDS: SODIUM CHLORIDE FLUSH 0.9% 10 ML SYRINGE IVP SCH ×2 (00:11→08:54)
--- NOTE | 2018-03-12 01:52 | HISTORY & PHYSICAL EXAMINATION ---
DATE OF SERVICE: 03/11/2018 Physician: Deloris Narayan MD HISTORY OF PRESENT ILLNESS: This is a 48-year-old white female with a history of heavy smoking (two packs a day), hypertension, hyperlipidemia, family history of heart disease , chronic neck and back pain. The patient has had chest pressure symptoms for approximately three years, she states. One month ago, she presented to our emergency room with an episode of chest pain where troponin elevation was found and she was transferred to [facility] for management. It is not clear why she had no angiogram while there. She remembers that medications were adjusted, and she was to have a stress test. She did admit that she signed out AMA because of a delay in the stress test and it was scheduled to be done as an outpatient. The patient had continued anginal symptoms and did undergo her stress test on 03/06/2018. Per report obtained from [facility] medical records, she developed chest pain toward the completion of the test and was advised to go to the emergency room, but chose not to. The impression of the stress test was abnormal with the following findings: LVEF is 72%, moderate mid to distal anterior wall perfusion defect which is nearly completely reversible, consistent with ischemia. There is a small mid lateral myocardial fixed perfusion defect. This is suggestive of a scar. The patient was to be seen for the first time by her superintendent board mill following that stress test, appointments were moved up for her, she has not yet had this appointment. The patient has continued to have chest pressure at least two times a day, her worst symptoms are when the chest pressure develops into pain, which she had today. Her symptoms starts with pressure in the left scapular area radiating around to the anterior chest and then up into her neck. It is associated with diaphoresis. She describes no other associated symptoms. She has been compliant with her medications. With this symptom she presented to the emergency room today. Emergency room tried to call her superintendent board mill, who did not return the call. The patient is being admitted for unstable angina. PAST MEDICAL HISTORY: OR one month ago, hypertension, hyperlipidemia, heavy smoking history. FAMILY HISTORY: The patient's mother had early coronary disease. SOCIAL HISTORY: She lives with her son. She was a 8-vhkt-l-day smoker, over this one month has decreased down to 2 cigarettes a day with the use of a Nicoderm patch. She is on disability. 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 She denies any alcohol abuse or illicit drug use. ALLERGIES: PENICILLIN, SULFA. MEDICATIONS AT HOME 1. Baby aspirin daily. 2. Plavix 75 mg daily. 3. Metoprolol tartrate 25 mg b.i.d. 4. Lipitor 40 mg at bedtime. 5. Nicoderm Patch tapering dose. 6. Lisinopril 40 mg every night 7. Tylenol and Codeine 7.5/325 prn 8. Zantac 150 mg bid 9. Prilosec 20 mg daily 10. sublingual Nitroglycerin prn angina 11. Xanax 1 mg daily prn REVIEW OF SYSTEMS: Comprehensive review of systems was performed and the pertinent positives are in the HPI. The rest are negative. PHYSICAL EXAMINATION GENERAL: Obese white female. She appears older than her age. She is in no distress. VITAL SIGNS: Blood pressure 140/80, heart rate 70, afebrile, room air saturation 99%. HEENT: Unremarkable. NECK: No JVD or carotid bruits. LUNGS: Clear. HEART: Heart sounds normal. No audible murmur. ABDOMEN: Soft, obese. No organomegaly. EXTREMITIES: Without clubbing, cyanosis, edema. NEUROLOGIC: Intact. LABORATORIES: Normal electrolytes. Normal BUN and creatinine. Normal liver tests. Normal CBC. First troponin not detectable. IMAGING STUDIES: Chest x-ray: No active disease. EKG: Normal sinus rhythm. Q-waves are present in the lateral leads and early RS transition, consistent with an inferolateral scar. There is no old EKG available for comparison. IMPRESSION/DIAGNOSES 1. Unstable angina. 2. 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 It is unclear why she did not have an angiogram following the OR one month ago. 3. Hypertension. 4. Hyperlipidemia. 5. Tobacco abuse. PLAN 1. Admit the patient to medical-surgical telemetry bed. 2. Increase antianginal medications, we will start nitropaste topically. 3. Use sublingual nitroglycerin p.r.n. 4. Continue her aspirin, Plavix, betablocker, statin. 5. Cycle troponins and recheck an EKG for changes. 6. The patient should be managed with angiography, a transfer will be requested. The patient has decided not to have the management with her [facility] superintendent board mill, who she has not yet met. She prefers to go to [place]. CODE STATUS: FULL CODE. DEEP VENOUS THROMBOSIS PROPHYLAXIS: SCDs. ATTESTATION: The patient is expected to be discharged or transferred to another facility within 96 hours: Yes. TD: 03/11/2018 22:10 KT
[2018-03-12] MEDS: NITROGLYCERIN 2% PASTE TOP SCH ×2 (04:05→11:49)
[2018-03-12] MEDS ORDERED: cloNIDine 0.1 MG TABLET PO PRN (05:15)
[2018-03-12] MEDS: NITROGLYCERIN SL 0.4 MG TABLET SL PRN ×2 (05:16→05:31)
[2018-03-12] MEDS ORDERED: MORPHINE 2 MG/ML SYRINGE IVP PRN (05:17)
[2018-03-12] MEDS: SODIUM CHLORIDE FLUSH 0.9% 10 ML SYRINGE IVP PRN ×2 (05:33→07:58)
[2018-03-12 05:39] LABS: BASOPHILS # (AUTO) 0.1 10^3/uL (0.0-0.1); BASOPHILS % (AUTO) 1.4 %; EOSINOPHILS # (AUTO) 0.2 10^3/uL (0.0-0.7); EOSINOPHILS % (AUTO) 2.6 %; HGB - HEMOGLOBIN 13.9 g/dL (12.0-16.0); LYMPHOCYTES # (AUTO) 2.1 10^3/uL (1.5-3.5); LYMPHOCYTES % (AUTO) 36.9 %; MEAN CORPUSCULAR HEMOGLOBIN 34.5 pg (27.0-31.0); MEAN CORPUSCULAR HGB CONC 34.5 g/dL (32.0-36.0); MEAN CORPUSCULAR VOLUME 100.2 fL (81.0-99.0); MEAN PLATELET VOLUME 8.2 fL (7.9-10.8); MONOCYTES # (AUTO) 0.6 10^3/uL (0.0-1.0); MONOCYTES % (AUTO) 10.7 %; NEUTROPHILS # (AUTO) 2.8 10^3/uL (1.5-6.6); NEUTROPHILS % (AUTO) 48.4 %; PLT - PLATELET COUNT 132 10^3/uL (130-450); RED BLOOD COUNT 4.01 10^6/uL (4.20-5.40); RED CELL DISTRIBUTION WIDTH 12.8 % (12.0-15.0); WHITE BLOOD COUNT 5.8 x10^3/uL (4.8-10.8)
[2018-03-12] MEDS ORDERED: MORPHINE 2 MG/ML SYRINGE ONE (05:42)
[2018-03-12 05:58] LABS: BUN - BLOOD UREA NITROGEN 10 mg/dL (6-20); CALCIUM 9.4 mg/dL (8.5-10.3); CARBON DIOXIDE - CO2 23 mmol/L (21-32); CHLORIDE 101 mmol/L (101-111); CHOL/HDL RATIO 3.4 (<4.4); CHOLESTEROL 168 mg/dL; CREATININE 0.6 mg/dL (0.4-1.0); GFR - MDRD 107 (>89); GLUCOSE 97 mg/dL (70-100); HDL CHOLESTEROL 49 mg/dL; LDL CHOLESTEROL,CALCULATED 75 mg/dL; LDL/HDL RATIO 1.5 (<4.4); SODIUM 134 mmol/L (135-145); VLDL CHOLESTEROL 44 mg/dL
[2018-03-12] MEDS: HYDROcod/ACETAM 7.5 MG/325 MG TABLET PO PRN ×2 (06:42→11:49)
[2018-03-12] MEDS: ALPRAZolam 0.25 MG TABLET PO PRN (06:43)
[2018-03-12] MEDS: PANTOPRAZOLE 40 MG TABLET PO SCH (06:43)
[2018-03-12] MEDS ORDERED: ASPIRIN EC 81 MG TABLET PO SCH ×2 (08:00→09:04)
[2018-03-12] MEDS ORDERED: ASPIRIN EC 325 MG TABLET PO SCH (08:04)
[2018-03-12] MEDS: METOPROLOL TARTRATE 25 MG TABLET PO SCH (08:51)
[2018-03-12] MEDS: ENOXAPARIN 100 MG/ML SYRINGE SUBQ SCH (08:52)
[2018-03-12] MEDS ORDERED: CLOPIDOGREL 75 MG TABLET PO SCH (09:00)
[2018-03-12] MEDS ORDERED: POLYETHYLENE GLYCOL 3350 17 GM PACKET PO SCH (09:00)
[2018-03-12] MEDS ORDERED: FAMOTIDINE 20 MG TABLET PO SCH (09:00)
[2018-03-12] MEDS ORDERED: CALCIUM CARBONATE CHEW 500 MG TABLET PO SCH (09:07)
--- NOTE | 2018-03-12 10:44 | DISCHARGE SUMMARY ---
Physician: Deloris Narayan MD DATE OF ADMISSION: 03/11/2018 DATE OF DISCHARGE: 03/12/2018 HISTORY OF PRESENT ILLNESS: This is a 48-year-old white female with a history of heavy smoking, currently quitting, history of hypertension, hyperlipidemia, family history of heart disease, who had an IL one month ago, was transferred to [facility] , but did not undergo an angiogram for unknown reasons. Several weeks later, she had an outpatient stress test, which was abnormal, showing a mid lateral scar and near complete reversible, moderate anterior perfusion defect. The patient has been scheduled to see a hog slaughterer , but has not seen one yet. Her medications were adjusted at the time of the acute IL, which she has been compliant with. She has had continued post-IL angina, up to two times a day. She presented yesterday with a severe episode of angina with radiation to the neck and diaphoresis, and was admitted for management of unstable angina. HOSPITAL COURSE AND DISCHARGE DIAGNOSES 1. Unstable angina: The patient's daily aspirin, Plavix, beta zackery, statin were continued. She was put on topical nitro paste, Lovenox at a therapeutic dose, and advised bedrest. Her troponins were recycled, and all were normal (not detectable). The patient did experience two episodes of brief chest pressure, which resolved spontaneously in under 10 minutes, and did not require sublingual nitroglycerin p.r.n. I reached out to a hog slaughterer at [facility] in [place], [place], and the patient was kindly accepted in transfer for a coronary angiogram. 2. Old IL: The patient reports that her troponin elevation was in the 28-30 range; these reports were not available to me from [facility]. The patient's beta zackery was continued. The stress test report was available to me, showing a stress ejection fraction of 72%. The patient was already on Lisinopril for blood pressure control, and all her other medications were continued as in #1 above. The patient did not have a new IL during this admission, three troponins were normal. 3. Hypertension: The patient was on Lisinopril, Metoprolol and topical nitro paste while here. Blood pressure was mostly controlled, the highest was 173/93, at discharge she had a blood pressure of 108/70. 4. Elevated cholesterol and triglycerides: The patient had a fasting lipid panel performed, which showed a total cholesterol of 168, LDL 75, HDL 49, but elevated triglycerides of 220. The patient was counseled on proper cardiac diet including decrease in starches and sweets for better triglyceride control. 5. Tobacco abuse: The patient has a history of two pack a day smoking. In the past 4-6 weeks, she has successfully worked on quitting using Nicoderm patches. The current cigarette use is two cigarettes per day. Further cessation was advised and discussed with the patient. 6. Elevated liver function tests and MCV: The patient's baseline labs showed AST of 71, ALT of 71, alkaline phosphatase normal at 86, and bilirubin normal at 0.8. Her CBC showed her MCV to be 100.2. Because of this, I suspected the patient has significant alcohol intake, and she was queried about this. The patient vehemently denies using alcohol. She states she has a "fatty liver." Consider B12 and folate evaluation as an outpatient. 7. Heartburn: The patient experienced heartburn on the second day of hospitalization, Tums was administered with relief. LABORATORY AND IMAGING: Reviewed and summarized above. ALLERGIES: ETODOLAC, GABAPENTIN, IODINE, NORTRIPTYLINE, PENICILLIN, SHELLFISH , CODEINE, METHADONE. MEDICATIONS AT THE TIME OF TRANSFER 1. Tylenol p.r.n. pain and fever. 2. Xanax 1 mg p.r.n. anxiety. 3. Aspirin 81 mg four tablets daily. 4. Plavix 75 mg daily. 5. Lipitor 40 mg at bedtime. 6. Tums 500 mg b.i.d. p.r.n. 7. Lovenox 90 mg subcutaneously b.i.d. 8. Pepcid 20 mg p.o. daily. 9. Tylenol with codeine p.r.n. 10. Lisinopril 40 mg q.p.m. 11. Metoprolol tartrate 25 mg b.i.d. 12. Nicoderm patch topically daily. 13. Sublingual nitroglycerin p.r.n. 14. Nitro paste 3/4 inch topically every 8 hours. 15. Protonix 40 mg daily. 16. MiraLax as needed. 17. Compazine as needed. 18. Zantac as needed. 19. Restoril as needed. CONDITION AT TRANSFER: Stable. PHYSICAL EXAMINATION VITAL SIGNS: Blood pressure 113/72, pulse 66, sinus rhythm. Room air saturation 99%, afebrile. HEENT: Unremarkable. NECK: No JVD or carotid bruits. CHEST: Clear. HEART: Heart sounds normal. ABDOMEN: Soft, obese, unremarkable. EXTREMITIES: No clubbing, cyanosis, or edema. NEUROLOGIC: Intact. CODE STATUS: FULL CODE. FOLLOWUP: This will be determined after her angiogram findings which are to be done at [facility]. Time required to complete this entire dictation, chart review, arrangement for transfer, coordination of care: 60 minutes. cc: RYLEY Claudio TD: 03/12/2018 10:04 [email or web address]
[2018-03-12 11:48] VITALS: BP 118/81
[2018-03-12] MEDS ORDERED: ALPRAZolam 0.25 MG TABLET PO STA (11:54)
== END 2018-03-12 12:24 | disposition short-term general hospital (02) | DRG 303 ==
LOC: ED 11:13 → OBS 15:43 → OBSVTOIN 19:55 → MS2 20:25
PROVIDERS: ADMIT Internal Medicine; ATTEND Internal Medicine
DX: I25.110 Atherosclerotic heart disease of native coronary artery with unstable angina pectoris (principal); I25.2 Old myocardial infarction; I10 Essential (primary) hypertension; E78.5 Hyperlipidemia, unspecified; E66.9 Obesity, unspecified; F17.210 Nicotine dependence, cigarettes, uncomplicated; R12 Heartburn; F32.9 Major depressive disorder, single episode, unspecified; F41.9 Anxiety disorder, unspecified; F90.9 Attention-deficit hyperactivity disorder, unspecified type; F43.10 Post-traumatic stress disorder, unspecified; F40.240 Claustrophobia; Z68.32 Body mass index [BMI] 32.0-32.9, adult; Z82.49 Family history of ischemic heart disease and other diseases of the circulatory system; Z79.82 Long term (current) use of aspirin; Z79.02 Long term (current) use of antithrombotics/antiplatelets; Z79.899 Other long term (current) drug therapy
CPT/HCPCS: 36415; 71045; 80048; 80053; 80061; 83690; 83721; 83735; 84484; 85025; 85610; 93005; 96372; 96374; 99283; 99284

== ENCOUNTER 2018-06-01 19:27 | Outpatient (CLI) | payer MEDICAID ==
[2018-06-01 20:16] LABS: HB2 TOTAL 14.7 g/dL; HEMOGLOBIN A1C 0.51 g/dL; HEMOGLOBIN A1C % 5.3 % (4.6-6.2)
== END 2018-06-01 19:28 | disposition home or self-care (01) ==
LOC: LAB 19:27
PROVIDERS: ATTEND Nurse Practitioner
DX: R53.83 Other fatigue (principal); R73.09 Other abnormal glucose
CPT/HCPCS: 83036; 84443

== ENCOUNTER 2018-06-11 10:19 | Outpatient (CLI) | payer MEDICAID ==
[2018-06-11 19:52] LABS: MUDS CUTOFF CONCENTRATIONS CUTOFF CONC BELOW:
[2018-06-11 20:30] LABS: AMPHETAMINE SCREEN,URINE NEGATIVE (NEGATIVE); BENZODIAZEPINES SCREEN, URINE POSITIVE (NEGATIVE); COCAINE SCREEN URINE NEGATIVE (NEGATIVE); METHADONE SCREEN, URINE NEGATIVE (NEGATIVE); METHAMPHETAMINES SCREEN, URINE NEGATIVE (NEGATIVE); OPIATE SCREEN, URINE POSITIVE (NEGATIVE); OXYCODONE SCREEN, URINE NEGATIVE (NEGATIVE); PROPOXYPHENE SCREEN, URINE NEGATIVE (NEGATIVE); TRICYCLIC ANTIDEPRESSANT,URINE NEGATIVE (NEGATIVE)
== END 2018-06-11 10:20 | disposition home or self-care (01) ==
LOC: LAB.R 10:19
PROVIDERS: ATTEND Nurse Practitioner Family
DX: Z79.891 Long term (current) use of opiate analgesic (principal)
CPT/HCPCS: 80306

== ENCOUNTER 2018-08-08 09:55 | Outpatient (CLI) | payer MEDICAID ==
[2018-08-08 10:33] LABS: BASOPHILS # (AUTO) 0.1 10^3/uL (0.0-0.1); BASOPHILS % (AUTO) 1.8 %; EOSINOPHILS # (AUTO) 0.2 10^3/uL (0.0-0.7); EOSINOPHILS % (AUTO) 2.2 %; HGB - HEMOGLOBIN 14.6 g/dL (12.0-16.0); LYMPHOCYTES # (AUTO) 2.6 10^3/uL (1.5-3.5); LYMPHOCYTES % (AUTO) 36.2 %; MEAN CORPUSCULAR HGB CONC 34.5 g/dL (32.0-36.0); MEAN CORPUSCULAR VOLUME 95.8 fL (81.0-99.0); MEAN PLATELET VOLUME 8.6 fL (7.9-10.8); MONOCYTES # (AUTO) 0.5 10^3/uL (0.0-1.0); MONOCYTES % (AUTO) 7.3 %; NEUTROPHILS # (AUTO) 3.7 10^3/uL (1.5-6.6); NEUTROPHILS % (AUTO) 52.5 %; PLT - PLATELET COUNT 170 10^3/uL (130-450); RED BLOOD COUNT 4.41 10^6/uL (4.20-5.40); RED CELL DISTRIBUTION WIDTH 13.5 % (12.0-15.0); WHITE BLOOD COUNT 7.1 x10^3/uL (4.8-10.8)
[2018-08-08 11:32] LABS: ALBUMIN 4.2 g/dL (3.2-5.5); ALBUMIN/GLOBULIN RATIO 1.2 (1.0-2.2); ALKALINE PHOSPHATASE 66 IU/L (42-121); ALT ALANINE AMINOTRANSFERASE 52 IU/L (10-60); AST ASPARTATE AMINOTRANSFERASE 46 IU/L (10-42); BILIRUBIN,TOTAL 0.5 mg/dL (0.2-1.0); BUN - BLOOD UREA NITROGEN 6 mg/dL (6-20); CALCIUM 9.5 mg/dL (8.5-10.3); CARBON DIOXIDE - CO2 24 mmol/L (21-32); CHLORIDE 104 mmol/L (101-111); CHOL/HDL RATIO 3.7 (<4.4); CHOLESTEROL 166 mg/dL; CREATININE 0.6 mg/dL (0.4-1.0); GFR - MDRD 107 (>89); GLUCOSE 119 mg/dL (70-100); HDL CHOLESTEROL 45 mg/dL; LDL CHOLESTEROL,CALCULATED 96 mg/dL; LDL/HDL RATIO 2.1 (<4.4); SODIUM 138 mmol/L (135-145); TOTAL PROTEIN 7.8 g/dL (6.7-8.2); VLDL CHOLESTEROL 25 mg/dL
[2018-08-08 19:54] LABS: FREE T4 (FREE THYROXINE) 0.88 ng/dL (0.58-1.64); THYROID STIMULATING HORMONE 1.48 uIU/mL (0.34-5.60)
== END 2018-08-08 09:56 | disposition home or self-care (01) ==
LOC: LAB 09:55
PROVIDERS: ATTEND Student in an Organized Health Care Education/Training Program
DX: E03.9 Hypothyroidism, unspecified (principal); E55.9 Vitamin D deficiency, unspecified; E66.9 Obesity, unspecified; E78.2 Mixed hyperlipidemia; I10 Essential (primary) hypertension; Z79.899 Other long term (current) drug therapy
CPT/HCPCS: 36415; 80053; 80061; 82306; 83721; 84439; 84443; 84481; 85025; 86376

== ENCOUNTER 2018-10-18 07:20 | Outpatient (CLI) | payer MEDICAID ==
[2018-10-18 08:07] LABS: BUN - BLOOD UREA NITROGEN 7 mg/dL (6-20); CALCIUM 9.6 mg/dL (8.5-10.3); CARBON DIOXIDE - CO2 20 mmol/L (21-32); CHLORIDE 103 mmol/L (101-111); CK- CREATINE KINASE 131 IU/L (22-269); CREATININE 0.6 mg/dL (0.4-1.0); GFR - MDRD 107 (>89); GLUCOSE 107 mg/dL (70-100); PHOSPHORUS 5.1 mg/dL (2.5-4.6); SODIUM 135 mmol/L (135-145)
[2018-10-18 08:48] LABS: FOLLICLE STIMULATING HORMONE 41.12 mIU/mL
[2018-10-18 08:52] LABS: CRP - C-REACTIVE PROTEIN < 1.0 mg/dL (0-1.0)
== END 2018-10-18 07:21 | disposition home or self-care (01) ==
LOC: LAB 07:20
PROVIDERS: ATTEND Student in an Organized Health Care Education/Training Program
DX: E55.9 Vitamin D deficiency, unspecified (principal); M83.9 Adult osteomalacia, unspecified; R53.83 Other fatigue
CPT/HCPCS: 36415; 80048; 81599; 82306; 82533; 82550; 82607; 83001; 83516; 83970; 84075; 84080; 84100; 85651; 86140

== ENCOUNTER 2019-01-16 06:31 | Emergency (ER) | payer MEDICAID ==
[2019-01-16] MEDS ORDERED: oxyCODONE 5 MG TABLET PO STA (07:09)
--- NOTE | 2019-01-16 07:12 | ED Physician Documentation ---
PD HPI LOWER EXT INJURY - Stated complaint Stated Complaint: LFT LEG PX/FALL - Chief complaint Chief Complaint: Ext Problem - History obtained from History obtained from: Patient - History of Present Illness PD HPI LOW EXT INJURY LOCATION: Left, Knee, Foot Type of injury: Fall Where injury occurred: Home Timing - onset: Last night Worsened by: Moving, Palpating, Other (weight bearing) Associated symptoms: Swelling Similar symptoms before: Has not had sx before - Additional information Additional information: The patient is a 49-year-old female who tripped on her stairs last night and fell, impacting mostly her left knee. She presents now because of pain with ambulation. She is status post ORIF of her left tibia. Review of Systems Constitutional: denies: Fever Nose: denies: Congestion Cardiac: denies: Chest pain / pressure Respiratory: denies: Dyspnea, Cough GI: denies: Abdominal Pain, Nausea, Vomiting Skin: reports: Abrasion (s) Musculoskeletal: reports: Joint pain (left knee). 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 : Chronic bladder infection HEENT: Chronic vision loss, Chronic sinusitis, Chronic hearing loss Psych: Depression, Anxiety, ADD/ADHD, Post traumatic stress disorder, Claustrophobia Musculoskeletal: Osteoarthritis, Other Derm: None - Past Surgical History Past Surgical History: Yes General: Cholecystectomy, Other Ortho: Other - Present Medications Home Medications: Ambulatory Orders Medication Instructions Recorded Confirmed Hydrocodone/Acetaminophen 1 tab PO QID PRN 05/27/15 01/16/19 [Hydrocodon-Acetaminoph 7.5-325] Ranitidine HCl [Zantac] 150 mg PO DAILY 28 Days tablet 05/31/15 01/16/19 Alprazolam [Xanax] 1 mg PO DAILY PRN 10/07/15 01/16/19 Atorvastatin Calcium 40 mg PO DAILY 03/11/18 01/16/19 Clopidogrel [Plavix] 75 mg PO DAILY 03/11/18 01/16/19 Lisinopril 40 mg PO DAILY 03/11/18 01/16/19 Metoprolol Tartrate 50 mg PO BID 03/11/18 01/16/19 Nicotine 21 mg Patch [Nicoderm] 1 each TOP Q24H 03/11/18 03/11/18 Nitroglycerin 0.4 mg SL .Q5MIN PRN MDD 3 DOSES 03/11/18 01/16/19 Aspirin [Aspirin EC] 81 mg PO DAILY 01/16/19 01/16/19 Levothyroxine Sodium 25 mcg PO DAILY 01/16/19 01/16/19 - Allergies Allergies/Adverse Reactions: Allergies Allergy/AdvReac Type Severity Reaction Status Date / Time etodolac Allergy Unknown Verified 01/29/18 14:50 gabapentin Allergy Unknown Verified 01/29/18 14:50 iodine Allergy Unknown Verified 01/29/18 14:50 nortriptyline Allergy Unknown Verified 01/29/18 14:50 Penicillins Allergy Nausea Verified 01/29/18 14:50 shellfish derived Allergy Unknown Verified 01/29/18 14:50 Sulfa (Sulfonamide Allergy Hives Verified 01/16/19 07:33 Antibiotics) codeine AdvReac Itching Verified 01/29/18 14:50 methadone AdvReac Nausea Verified 01/29/18 14:50 - Social History Does the pt smoke?: Yes Smoking Status: Current every day smoker Does the pt drink ETOH?: Yes Does the pt have substance abuse?: No - Immunizations Immunizations are current?: Yes - POLST Patient has POLST: No PD ED PE NORMAL - Vitals Vital signs reviewed: Yes (normal) - General General: Alert and oriented X 3, Well developed/nourished, Other (Odor of stale alcohol on her breath.) - HEENT HEENT: Atraumatic, EOMI - Neck Neck: No bony TTP - Cardiac Cardiac: RRR - Respiratory Respiratory: No respiratory distress - Abdomen Abdomen: Soft, Non tender - Back Back: No spinal TTP - Derm Derm: No rash - Extremities Extremities: No edema, No calf tenderness / cord, Other (There is an abrasion over the patellar aspect of the left knee with associated tenderness to palpation. There is tenderness to palpation along the lateral joint line. She can extend the knee fully, but does not flex it past 20 degrees secondary to discomfort. There is no ligamentous instability detected. Distal neurovascular is intact. There is swelling and tenderness to palpation over the dorsum of the left foot.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, No motor deficit, No sensory deficit Results - Vitals Vitals: Oxygen O2 Source Room air - Rads (name of study) Left knee Radiology: Prelim report reviewed, EMP read contemporaneously, See rad report (No acute fracture or malalignment. Small joint effusion. Suggestion of minimal chondrocalcinosis.) Left foot Radiology: Prelim report reviewed, EMP read contemporaneously, See rad report (No acute fracture or malalignment. Findings of old tibia and fibula fractures with fixation hardware in place.) PD MEDICAL DECISION MAKING - ED course Complexity details: reviewed old records, reviewed results, re-evaluated patient, considered differential, d/w patient ED course: The patient's presentation is significant for contusion and abrasion to the left knee, as well as contusion to the left foot secondary to falling on stairs. X- rays of the left knee and left foot reveal no evidence of acute bony abnormality. Treatment in the emergency department included administration of oxycodone 1 tablet orally. Crutches were not dispensed because the patient has her own crutches. I discussed with her the expected course of injury, symptomatic treatment and outpatient follow-up, as well as potentially worrisome signs or symptoms that should prompt reevaluation in the emergency department. Departure - Departure Disposition: 01 Home, Self Care Clinical Impression: Effusion, left knee Abrasion of knee, left Qualifiers: Encounter type: initial encounter Qualified Code(s): S80.212A - Abrasion, left knee, initial encounter Contusion of left knee and lower leg Qualifiers: Encounter type: initial encounter Qualified Code(s): S80.02XA - Contusion of left knee, initial encounter Condition: Stable Instructions: ED Effusion Knee Follow-Up: Nino Saba MD [Primary Care Provider] - Comments: Apply ice pack to the sore areas intermittently for the next 3 days. You can use your previously prescribed pain medication if needed. Let pain be your guide to activity level. Follow-up with your primary physician within 2 weeks. Call to schedule an appointment. Return to the emergency department if you develop increasing pain or swelling of your knee, any sign of infection, or otherwise worsening symptoms. Discharge Date/Time: 01/16/19 08:46
--- NOTE | 2019-01-16 08:02 | XRAY Report ---
Reason: Fell down stairs onto left knee Procedure Date: 01/16/2019 Accession Number: [id number] / [id number] Procedure: XR - Knee 3 View LT CPT Code: FULL RESULT: EXAM: LEFT KNEE RADIOGRAPHY EXAM DATE: 01/16/2019 07:44 AM. CLINICAL HISTORY: Fell down stairs onto left knee. COMPARISON: None. TECHNIQUE: 3 views. FINDINGS: Bones: There are postsurgical changes from previous fixation of the tibia. Visualized portion of the intramedullary justin and fixation screw appears intact. No acute fracture demonstrated. Joints: No dislocation or subluxation. There is a small joint effusion. Soft Tissues: There appears to be slight calcification of the meniscal fibrocartilage of the medial lateral compartments. Slight soft tissue swelling anterior to the patellar tendon. IMPRESSION: 1. No acute fracture or malalignment. 2. Small joint effusion. 3. Suggestion of minimal chondrocalcinosis. RADIA
--- NOTE | 2019-01-16 08:04 | XRAY Report ---
Reason: left foot pain after falling down stairs Procedure Date: 01/16/2019 Accession Number: [id number] / [id number] Procedure: XR - Foot 3 View LT CPT Code: FULL RESULT: EXAM: LEFT FOOT RADIOGRAPHY EXAM DATE: 01/16/2019 07:44 AM. CLINICAL HISTORY: Left foot pain after falling down stairs. COMPARISON: Left foot radiographs from 03/21/2009. TECHNIQUE: 3 views. FINDINGS: Bones: There are partially visualized changes from fixation of tibia fracture with intramedullary justin and fixation screws. Visualized portions appear intact. There is slight cortical thickening of the distal tibial diaphysis, which may represent sequela of old fracture. There is old, healed fracture deformity of the distal fibular diaphysis. No finding suspicious for acute fracture. Joints: No dislocation or subluxation. Soft Tissues: There is possible slight soft tissue prominence along the dorsum of the midfoot and forefoot. IMPRESSION: 1. No acute fracture or malalignment. 2. Findings of old tibia and fibula fractures with fixation hardware in place. RADIA
[2019-01-16 08:37] VITALS: BP 118/79
== END 2019-01-16 08:46 | disposition home or self-care (01) ==
LOC: ED 06:31
DX: S80.212A Abrasion, left knee, initial encounter (principal); S80.02XA Contusion of left knee, initial encounter; S90.32XA Contusion of left foot, initial encounter; W10.9XXA Fall (on) (from) unspecified stairs and steps, initial encounter; Y93.01 Activity, walking, marching and hiking; Y92.009 Unspecified place in unspecified non-institutional (private) residence as the place of occurrence of the external cause; M25.462 Effusion, left knee; I10 Essential (primary) hypertension; F17.200 Nicotine dependence, unspecified, uncomplicated; Z79.02 Long term (current) use of antithrombotics/antiplatelets; Z79.82 Long term (current) use of aspirin
CPT/HCPCS: 73562; 73630; 99283; A9270

== ENCOUNTER 2019-06-02 08:54 | Emergency (ER) | payer MEDICAID ==
--- NOTE | 2019-06-02 09:23 | ED Physician Documentation ---
PD HPI CHEST PAIN - Stated complaint Stated Complaint: CP - Chief complaint Chief Complaint: Cardiac - History obtained from History obtained from: Patient - History of Present Illness Timing - onset: Today (woke up with pain) Timing - onset during: Rest Timing - duration: Minutes Timing - details: Intermittant Severity Comments: moderate from her back going sharp, then later gets pain in her chest Quality: Sharp Location: Substernal Radiation: Other (none) Improved by: Nothing Worsened by: Other (nothing) Associated symptoms: Nausea. No: Shortness of air, Diaphoresis, Vomiting, Feeling faint / dizzy, General Weakness, Palpitations, Cough Recently seen: Not recently seen - Treatment prior to arrival Treatment prior to arrival: nitroglycerin x 3 improved her symptoms Review of Systems Ten Systems: 10 systems reviewed and negative Constitutional: denies: Fever, Chills Cardiac: reports: Chest pain / pressure. denies: Palpitations, Pedal edema, Calf pain Respiratory: denies: Dyspnea, Cough, Hemoptysis GI: reports: Abdominal Pain, Nausea. 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 : Chronic bladder infection HEENT: Chronic vision loss, Chronic sinusitis, Chronic hearing loss Psych: Depression, Anxiety, ADD/ADHD, Post traumatic stress disorder, Claustrophobia Musculoskeletal: Osteoarthritis, Other Derm: None - Past Surgical History Past Surgical History: Yes General: Cholecystectomy, Other Ortho: Other - Present Medications Home Medications: Ambulatory Orders Medication Instructions Recorded Confirmed Hydrocodone/Acetaminophen 1 tab PO QID PRN 05/27/15 01/16/19 [Hydrocodon-Acetaminoph 7.5-325] raNITIdine HCl [Zantac] 150 mg PO DAILY 28 Days tablet 05/31/15 01/16/19 Alprazolam [Xanax] 1 mg PO DAILY PRN 10/07/15 01/16/19 Atorvastatin Calcium 40 mg PO DAILY 03/11/18 01/16/19 Clopidogrel [Plavix] 75 mg PO DAILY 03/11/18 01/16/19 Lisinopril 40 mg PO DAILY 03/11/18 01/16/19 Metoprolol Tartrate 50 mg PO BID 03/11/18 01/16/19 Nicotine 21 mg Patch [Nicoderm] 1 each TOP Q24H 03/11/18 03/11/18 Nitroglycerin 0.4 mg SL .Q5MIN PRN MDD 3 DOSES 03/11/18 01/16/19 Aspirin [Aspirin EC] 81 mg PO DAILY 01/16/19 01/16/19 Levothyroxine Sodium 25 mcg PO DAILY 01/16/19 01/16/19 - Allergies Allergies/Adverse Reactions: Allergies Allergy/AdvReac Type Severity Reaction Status Date / Time etodolac Allergy Unknown Verified 06/02/19 08:59 gabapentin Allergy Unknown Verified 06/02/19 08:59 iodine Allergy Unknown Verified 06/02/19 08:59 nortriptyline Allergy Unknown Verified 06/02/19 08:59 Penicillins Allergy Nausea Verified 06/02/19 08:59 shellfish derived Allergy Unknown Verified 06/02/19 08:59 Sulfa (Sulfonamide Allergy Hives Verified 06/02/19 08:59 Antibiotics) codeine AdvReac Itching Verified 06/02/19 08:59 methadone AdvReac Nausea Verified 06/02/19 08:59 - Social History Does the pt smoke?: Yes Smoking Status: Current every day smoker Does the pt drink ETOH?: Yes Does the pt have substance abuse?: No - Immunizations Immunizations are current?: Yes - POLST Patient has POLST: No PD ED PE NORMAL - Vitals Vital signs reviewed: Yes - General General: Alert and oriented X 3, No acute distress, Well developed/nourished - HEENT HEENT: Atraumatic, Pharynx benign - Neck Neck: Supple, no meningeal sign, No JVD - Cardiac Cardiac: RRR, No murmur, No gallop, No rub, Strong equal pulses - Respiratory Respiratory: No respiratory distress, Clear bilaterally - Abdomen Abdomen: Soft, Non tender, Non distended - Female Female : Deferred - Rectal Rectal: Deferred - Derm Derm: Normal color, Warm and dry, No rash - Extremities Extremities: No deformity, No tenderness to palpate, Normal ROM s pain, No edema, No calf tenderness / cord - Neuro Neuro: Alert and oriented X 3 Eye Opening: Spontaneous Motor: Obeys Commands Verbal: Oriented GCS Score: 15 - Psych Psych: Normal mood, Normal affect PD ED PE EXPANDED - Cardiac Cardiac: Chest wall TTP - Back Back: Soft tissue tenderness (diffusely across the back ) Results - Vitals Vitals: Vital Signs - 24 hr 06/02/19 06/02/19 06/02/19 08:59 09:27 10:08 Temperature 36.5 C Heart Rate 78 68 85 Respiratory 22 22 18 Rate Blood Pressure 115/77 122/88 H 106/70 O2 Saturation 99 95 100 Oxygen O2 Source Room air - EKG (time done) 09:13 Rate: Rate (enter#) (71) Rhythm: NSR Festus: Normal Intervals: Normal MO QRS: Normal Ischemia: Normal ST segments. No: ST elevation c/w ischemia, ST depression, T wave inversion Computer interpretation: Agree with computer - Labs Labs: Laboratory Tests 06/02/19 06/02/19 06/02/19 09:19 09:19 09:19 WBC 7.4 RBC 4.53 Hgb 14.9 Hct 42.8 MCV 94.5 MCH 32.9 H MCHC 34.8 RDW 13.1 Plt Count 179 MPV 10.3 Neut # (Auto) 3.7 Lymph # (Auto) 3.0 Floyd # (Auto) 0.5 Eos # (Auto) 0.1 Baso # (Auto) 0.1 Absolute Nucleated RBC 0.00 Nucleated RBC % 0.0 Sodium 135 Potassium 4.4 Chloride 98 L Carbon Dioxide 22 Anion Gap 15.0 H BUN 9 Creatinine 0.7 Estimated GFR (MDRD) 89 Glucose 98 Calcium 9.3 Troponin I High Sens 5.2 - Rads (name of study) CXR Radiology: Final report received, EMP read contemporaneously, See rad report PD MEDICAL DECISION MAKING - ED course Complexity details: reviewed results, re-evaluated patient, considered differential, d/w patient ED course: ddx- ACS, esophageal spasm, gerd, chest wall pain, thoracic aortic dissection, PE Pt with sharp shooting chest pain started in her back then had pain in her chest. Pain improved in the ED after NTG. She has a normal ekg with no ischemic changes, her high sensitivity troponin is negative. She has no risk factors for PE and is PERC negative. Her CXR is clear and she has a normal sized mediastinum, doubt TAD. Pt was given a dose of fentanyl for pain though she says it has improved, but after 1 minute of pain medicine states she wants her narcotic from home and wishes to leave. I discussed with her plan to monitor her symptoms and repeat her EKG and troponin to reassess for cardiac etiology of her pain but she declined and decided to leave AMA. She understands that we cannot fully evaluate her chest pain without a repeat ekg and troponin given the onset of her symptoms but she declined and his coherent and has decision making capacity. Departure - Departure Disposition: 07 Against Medical Advice Clinical Impression: Chest pain Qualifiers: Chest pain type: unspecified Qualified Code(s): R07.9 - Chest pain, unspecified Discharge Date/Time: 06/02/19 10:35
[2019-06-02 09:28] LABS: BASOPHILS # (AUTO) 0.1 10^3/uL (0.0-0.1); BASOPHILS % (AUTO) 0.8 %; EOSINOPHILS # (AUTO) 0.1 10^3/uL (0.0-0.7); EOSINOPHILS % (AUTO) 1.6 %; HGB - HEMOGLOBIN 14.9 g/dL (12.0-16.0); LYMPHOCYTES % (AUTO) 40.3 %; MEAN CORPUSCULAR HEMOGLOBIN 32.9 pg (27.0-31.0); MEAN CORPUSCULAR HGB CONC 34.8 g/dL (32.0-36.0); MEAN CORPUSCULAR VOLUME 94.5 fL (81.0-99.0); MEAN PLATELET VOLUME 10.3 fL (7.9-10.8); MONOCYTES # (AUTO) 0.5 10^3/uL (0.0-1.0); MONOCYTES % (AUTO) 6.5 %; NEUTROPHILS # (AUTO) 3.7 10^3/uL (1.5-6.6); NEUTROPHILS % (AUTO) 50.5 %; PLT - PLATELET COUNT 179 10^3/uL (130-450); RED BLOOD COUNT 4.53 10^6/uL (4.20-5.40); RED CELL DISTRIBUTION WIDTH 13.1 % (12.0-15.0); WHITE BLOOD COUNT 7.4 x10^3/uL (4.8-10.8)
[2019-06-02 09:35] LABS: CALCIUM 9.3 mg/dL (8.5-10.3); CREATININE 0.7 mg/dL (0.4-1.0)
--- NOTE | 2019-06-02 09:37 | XRAY Report ---
Reason: chest pain Procedure Date: 06/02/2019 Accession Number: [id number] / [id number] Procedure: XR - Chest 1 View X-Ray CPT Code: 86615 FULL RESULT: EXAM: CHEST RADIOGRAPHY EXAM DATE: 06/02/2019 09:30 AM. CLINICAL HISTORY: Chest Pain. COMPARISON: CHEST 1 VIEW 03/11/2018 11:28 AM. TECHNIQUE: 1 view. FINDINGS: Lungs/Pleura: No focal opacities evident. No pleural effusion. No pneumothorax. Mediastinum: Within exam limitations, the cardiomediastinal contour is normal. Other: None. IMPRESSION: Normal single view chest. RADIA
[2019-06-02 10:08] VITALS: BP 106/70
[2019-06-02] MEDS ORDERED: fentaNYL 100 MCG/2 ML VIAL IVP STA (10:10)
== END 2019-06-02 10:35 | disposition left against medical advice (07) ==
LOC: ED 08:54
DX: R07.89 Other chest pain (principal); I10 Essential (primary) hypertension; F17.200 Nicotine dependence, unspecified, uncomplicated; Z79.82 Long term (current) use of aspirin; Z79.02 Long term (current) use of antithrombotics/antiplatelets; Z53.20 Procedure and treatment not carried out because of patient's decision for unspecified reasons
CPT/HCPCS: 36415; 71045; 80048; 84484; 85025; 93005; 96374; 99284

== ENCOUNTER 2019-06-17 16:07 | Emergency (ER) | payer MEDICAID ==
[2019-06-17] MEDS ORDERED: BUFFERED LIDOCAINE 10 ML SYRINGE SUBQ STA (17:05)
[2019-06-17] MEDS ORDERED: BACITRACIN ZINC OINT 14 GM TOP STA (17:18)
[2019-06-17] MEDS ORDERED: HYDROcod/ACETAM 5/325 MG TABLET PO STA (17:26)
--- NOTE | 2019-06-17 17:29 | ED Physician Documentation ---
PD HPI UPPER EXT INJURY - Stated complaint Stated Complaint: LT ARM LAC - Chief complaint Chief Complaint: Laceration - History obtained from History obtained from: Patient - History of Present Illness Location: Left, Forearm Type of injury: Laceration Where injury occurred: Home Timing - onset: Today Timing - duration: Minutes Timing - details: Abrupt onset, Still present Improved by: Rest, Immobilization Worsened by: Moving, Palpating Associated symptoms: No: Weakness, Numbness, Tingling, Swelling Similar symptoms before: Diagnosis (laceration) Recently seen: Emergency Dept - Additonal information Additional information: 49-year-old female had a construction knife in her hand when she fell lacerating her left forearm. She states that she had received distressing news that her sister and she is uncertain exactly how this laceration occurred. She is able to control bleeding with direct pressure and comes in now for evaluation. She states that she was cooking [place] and drinking beer at the time this happened. She usually is taking some pain medication and is on pain management for back pain. She did not have her pain medication today. Review of Systems Constitutional: denies: Fever Respiratory: denies: Cough GI: denies: Vomiting Musculoskeletal: reports: Extremity pain. 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 : Chronic bladder infection HEENT: Chronic vision loss, Chronic sinusitis, Chronic hearing loss Psych: Depression, Anxiety, ADD/ADHD, Post traumatic stress disorder, Claustrophobia Musculoskeletal: Osteoarthritis, Other Derm: None - Past Surgical History Past Surgical History: Yes General: Cholecystectomy, Other Ortho: Other - Present Medications Home Medications: Ambulatory Orders Medication Instructions Recorded Confirmed Hydrocodone/Acetaminophen 1 tab PO QID PRN 05/27/15 01/16/19 [Hydrocodon-Acetaminoph 7.5-325] raNITIdine HCl [Zantac] 150 mg PO DAILY 28 Days tablet 05/31/15 01/16/19 Alprazolam [Xanax] 1 mg PO DAILY PRN 10/07/15 01/16/19 Atorvastatin Calcium 40 mg PO DAILY 03/11/18 01/16/19 Clopidogrel [Plavix] 75 mg PO DAILY 03/11/18 01/16/19 Lisinopril 40 mg PO DAILY 03/11/18 01/16/19 Metoprolol Tartrate 50 mg PO BID 03/11/18 01/16/19 Nicotine 21 mg Patch [Nicoderm] 1 each TOP Q24H 03/11/18 03/11/18 Nitroglycerin 0.4 mg SL .Q5MIN PRN MDD 3 DOSES 03/11/18 01/16/19 Aspirin [Aspirin EC] 81 mg PO DAILY 01/16/19 01/16/19 Levothyroxine Sodium 25 mcg PO DAILY 01/16/19 01/16/19 - Allergies Allergies/Adverse Reactions: Allergies Allergy/AdvReac Type Severity Reaction Status Date / Time etodolac Allergy Unknown Verified 06/02/19 08:59 gabapentin Allergy Unknown Verified 06/02/19 08:59 iodine Allergy Unknown Verified 06/02/19 08:59 nortriptyline Allergy Unknown Verified 06/02/19 08:59 Penicillins Allergy Nausea Verified 06/02/19 08:59 shellfish derived Allergy Unknown Verified 06/02/19 08:59 Sulfa (Sulfonamide Allergy Hives Verified 06/02/19 08:59 Antibiotics) codeine AdvReac Itching Verified 06/02/19 08:59 methadone AdvReac Nausea Verified 06/02/19 08:59 - Social History Does the pt smoke?: Yes Smoking Status: Current every day smoker Does the pt drink ETOH?: Yes Does the pt have substance abuse?: No - Immunizations Immunizations are current?: No Immunizations: No immun - POLST Patient has POLST: No PD ED PE NORMAL - Vitals Vital signs reviewed: Yes - General General: Alert and oriented X 3, Well developed/nourished, Other (acutely anxious and with AOB) - HEENT HEENT: Atraumatic, PERRL, EOMI - Respiratory Respiratory: No respiratory distress - Derm Derm: Normal color, Warm and dry - Extremities Extremities: No deformity, Other (There is a 9cm laceration to the left volar forearm ulnar surface mid forearm. There is no involvement of deeper structures and the distal n/v is intact. 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, No motor deficit, No sensory deficit, Normal speech Eye Opening: Spontaneous Motor: Obeys Commands Verbal: Oriented GCS Score: 15 - Psych Psych: Other (mood is anxious and the affect is labile ) Results - Vitals Vitals: Vital Signs - 24 hr 06/17/19 06/17/19 06/17/19 16:16 16:42 17:15 Temperature 36.8 C 36.8 C Heart Rate 86 79 74 Respiratory 18 18 20 Rate Blood Pressure 148/82 H 139/94 H 166/108 H O2 Saturation 100 97 99 06/17/19 17:33 Temperature Heart Rate 72 Respiratory 18 Rate Blood Pressure 143/95 H O2 Saturation 99 Oxygen O2 Source Room air Procedures - Laceration (location) L forearm Length in cm: 9 Wound type: Linear, Clean Neurovascular status: Sensory intact, Motor intact, Vascular intact Anesthesia: Lidocaine 1%, With bicarb Wound Preparation: Hibiclens, Irrigated copiously NS, Wound explored, To the base Skin layer closure: Nylon, Interrupted, Size #-0 - enter number (4-0) Other: Patient tolerated well, No complications, Neurovascular intact, Dressing applied, Other (does not do immunizations) Complexity: Simple PD MEDICAL DECISION MAKING - ED course Complexity details: re-evaluated patient, considered differential, d/w patient ED course: 49 y/o female with a left forearm laceration is sutured and tolerates this well except that she cannot lay back on the gurney secondary to back pain and she has not taken her pain medications today. She is administered hydrocodone here. Departure - Departure Disposition: 01 Home, Self Care Clinical Impression: Forearm laceration Qualifiers: Encounter type: initial encounter Laterality: left Qualified Code(s): S51.812A - Laceration without foreign body of left forearm, initial encounter Condition: Stable Instructions: ED Laceration Ext Sutr Stap Tape Follow-Up: Nino Saba MD [Primary Care Provider] - Comments: Sutures will need to be removed in 10 days
[2019-06-17 17:34] VITALS: BP 143/95
== END 2019-06-17 18:00 | disposition home or self-care (01) ==
LOC: ED 16:07
DX: S51.812A Laceration without foreign body of left forearm, initial encounter (principal); W01.118A Fall on same level from slipping, tripping and stumbling with subsequent striking against other sharp object, initial encounter; W26.0XXA Contact with knife, initial encounter; Y93.89 Activity, other specified; Y92.009 Unspecified place in unspecified non-institutional (private) residence as the place of occurrence of the external cause; M54.9 Dorsalgia, unspecified; I10 Essential (primary) hypertension; Z79.02 Long term (current) use of antithrombotics/antiplatelets; Z79.82 Long term (current) use of aspirin; F17.200 Nicotine dependence, unspecified, uncomplicated
CPT/HCPCS: 12004; 99282; 99283; A9270

== ENCOUNTER 2019-07-18 07:13 | Emergency (ER) | payer MEDICAID ==
--- NOTE | 2019-07-18 07:44 | ED Physician Documentation ---
PD HPI HEENT - Stated complaint Stated Complaint: JAW SWOLLEN/PX - Chief complaint Chief Complaint: Heent - History obtained from History obtained from: Patient - History of Present Illness Timing - onset: How many days ago (couple) Timing - duration: Days Timing - details: Gradual onset, Still present Location: Tooth (left lower gum and face with localized swelling over few days. Very painful.) Improves: No: Medication Associated symptoms: Facial swelling. No: Fever Recently seen: Not recently seen Review of Systems Constitutional: reports: Myalgias. 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 : Chronic bladder infection HEENT: Chronic vision loss, Chronic sinusitis, Chronic hearing loss Psych: Depression, Anxiety, ADD/ADHD, Post traumatic stress disorder, Claustrophobia Musculoskeletal: Osteoarthritis, Other Derm: None - Past Surgical History Past Surgical History: Yes General: Cholecystectomy, Other Ortho: Other - Present Medications Home Medications: Ambulatory Orders Medication Instructions Recorded Confirmed Hydrocodone/Acetaminophen 1 tab PO QID PRN 05/27/15 01/16/19 [Hydrocodon-Acetaminoph 7.5-325] raNITIdine HCl [Zantac] 150 mg PO DAILY 28 Days tablet 05/31/15 01/16/19 Alprazolam [Xanax] 1 mg PO DAILY PRN 10/07/15 01/16/19 Atorvastatin Calcium 40 mg PO DAILY 03/11/18 01/16/19 Clopidogrel [Plavix] 75 mg PO DAILY 03/11/18 01/16/19 Lisinopril 40 mg PO DAILY 03/11/18 01/16/19 Metoprolol Tartrate 50 mg PO BID 03/11/18 01/16/19 Nitroglycerin 0.4 mg SL .Q5MIN PRN MDD 3 DOSES 03/11/18 01/16/19 Aspirin [Aspirin EC] 81 mg PO DAILY 01/16/19 01/16/19 Levothyroxine Sodium 25 mcg PO DAILY 01/16/19 01/16/19 Doxycycline Monohydrate 100 mg PO BID #14 tablet 07/18/19 Naproxen 375 mg PO BID #14 tablet 07/18/19 Ondansetron Odt [Zofran] 4 mg TL Q6H PRN #10 tablet 07/18/19 Oxycodone HCl/Acetaminophen 1 each PO Q6H PRN #14 tablet 07/18/19 [Percocet 5-325 mg Tablet] - Allergies Allergies/Adverse Reactions: Allergies Allergy/AdvReac Type Severity Reaction Status Date / Time etodolac Allergy Unknown Verified 07/18/19 07:23 gabapentin Allergy Unknown Verified 07/18/19 07:23 iodine Allergy Unknown Verified 07/18/19 07:23 nortriptyline Allergy Unknown Verified 07/18/19 07:23 Penicillins Allergy Nausea Verified 07/18/19 07:23 shellfish derived Allergy Unknown Verified 07/18/19 07:23 Sulfa (Sulfonamide Allergy Hives Verified 07/18/19 07:23 Antibiotics) codeine AdvReac Itching Verified 07/18/19 07:23 methadone AdvReac Nausea Verified 07/18/19 07:23 - Social History Does the pt smoke?: Yes Smoking Status: Current every day smoker Does the pt drink ETOH?: Yes Does the pt have substance abuse?: No - Immunizations Immunizations are current?: No Immunizations: No immun - POLST Patient has POLST: No PD ED PE NORMAL - Vitals Vital signs reviewed: Yes - General General: Alert and oriented X 3, Well developed/nourished, Other (appears in pain) - HEENT HEENT: Ears normal, Pharynx benign, Dentition benign (left lower gumline with focal swelling but not fluctuance. There is swelling but no firmness into cheek and facial skin wiht slight redness. No fluctuance. No tenderness of submandibular nor parotid glands. Dental caries noted and broken tooth just forward of the area of pain. ) Results - Vitals Vitals: Vital Signs - 24 hr 07/18/19 07/18/19 07:20 09:19 Temperature 36.7 C Heart Rate 79 86 Respiratory 18 18 Rate Blood Pressure 157/97 H 124/101 H O2 Saturation 99 98 Oxygen O2 Source Room air PD MEDICAL DECISION MAKING - ED course Complexity details: considered differential, d/w patient Departure - Departure Disposition: 01 Home, Self Care Clinical Impression: Dental abscess Condition: Stable Record reviewed to determine appropriate education?: Yes Instructions: ED Dental Abscess Facial Cellulitis Follow-Up: Nino Saba MD [Primary Care Provider] - Prescriptions: Doxycycline Monohydrate 100 mg PO BID #14 tablet Naproxen 375 mg PO BID #14 tablet Ondansetron Odt [Zofran] 4 mg TL Q6H PRN #10 tablet PRN Reason: Nausea / Vomiting Oxycodone HCl/Acetaminophen [Percocet 5-325 mg Tablet] 1 each PO Q6H PRN #14 tablet PRN Reason: pain Comments: Continue usual medications. 2 would add oxycodone if needed for worse pain. Also take naproxen anti-inflammatory twice daily for for 5 days. Doxycycline antibiotic twice daily for a week. Use ondansetron if needed for nausea. Recheck if not improving well over the next few days. Follow-up with dentist regarding more definitive care of the tooth area to try to prevent further infections. Discharge Date/Time: 07/18/19 09:19
[2019-07-18] MEDS ORDERED: DOXYCYCLINE 100 MG TABLET PO STA (08:04)
[2019-07-18] MEDS ORDERED: KETOROLAC 30 MG/ML VIAL IM STA (08:04)
[2019-07-18] MEDS ORDERED: HYDROmorphone 2 MG/ML VIAL IM STA (08:04)
[2019-07-18] MEDS ORDERED: ONDANSETRON ODT 4 MG TABLET TL STA (08:04)
[2019-07-18 09:22] VITALS: BP 124/101
== END 2019-07-18 09:19 | disposition home or self-care (01) ==
LOC: ED 07:13
DX: K04.7 Periapical abscess without sinus (principal); K02.9 Dental caries, unspecified; S02.5XXA Fracture of tooth (traumatic), initial encounter for closed fracture; X58.XXXA Exposure to other specified factors, initial encounter; I10 Essential (primary) hypertension; Z79.02 Long term (current) use of antithrombotics/antiplatelets; Z79.82 Long term (current) use of aspirin; F17.200 Nicotine dependence, unspecified, uncomplicated
CPT/HCPCS: 96372; 99283; 99284; A9270; J1170; Q0162

== ENCOUNTER 2020-03-07 11:22 | Outpatient (CLI) | payer MEDICAID ==
--- NOTE | 2020-03-07 12:32 | Ultrasound Report ---
PROCEDURE: Duplex Ext Veins Left INDICATIONS: CAD, UNSTABLE ANGINA,L LEG PX AND SWELLING TECHNIQUE: Real-time imaging, as well as color and pulse Doppler interrogation, were performed of the lower extr emity deep veins from the inguinal ligament to the popliteal fossa. COMPARISON: None. FINDINGS: The deep veins are normally compressible, and free of intraluminal thrombus. Color and pu lse Doppler demonstrate normal phasic intraluminal flow. There is normal augmentation response to di stal compression maneuver. IMPRESSION: No findings of deep venous thrombosis are seen. Reviewed by: Sarath Locke MD on 03/07/2020 11:30 AM BINTA Approved by: Sarath Locke MD on 03/07/2020 11:30 AM BINTA Station ID: [id number]
--- NOTE | 2020-03-07 12:46 | XRAY Report ---
PROCEDURE: Chest 2 View X-Ray INDICATIONS: RIB PAIN TECHNIQUE: 2 view(s) of the chest. COMPARISON: 06/02/2019, 03/11/2018, 01/29/2018. Correlation is also made with CT of chest angiogram 07/2018. FINDINGS: Surgical changes and devices: Cholecystectomy clips are seen. Lungs and pleura: No pleural effusions or pneumothorax. Lungs are clear. Mediastinum: Mediastinal contours are normal. Heart size is normal. Bones and chest wall: No suspicious bony abnormalities. In this patient with this given history, scr utiny is given to the ribs. No displaced rib fracture or other focal rib abnormality can be seen. Sof t tissues appear unremarkable. IMPRESSION: Chest plain film study within normal limits. No focal rib abnormality is seen. Reviewed by: Sarath Locke MD on 03/07/2020 11:44 AM BINTA Approved by: Sarath Locke MD on 03/07/2020 11:44 AM BINTA Station ID: [id number]
== END 2020-03-07 11:23 | disposition home or self-care (01) ==
LOC: DI 11:22
PROVIDERS: ATTEND Internal Medicine Cardiovascular Disease
DX: I25.110 Atherosclerotic heart disease of native coronary artery with unstable angina pectoris (principal)
CPT/HCPCS: 71046

== ENCOUNTER 2020-05-29 08:00 | Outpatient (CLI) | payer MEDICAID ==
--- NOTE | 2020-05-29 16:19 | XRAY Report ---
PROCEDURE: Knee 3 View LT INDICATIONS: LEFT KNEE PAIN TECHNIQUE: 3 views of the left knee(s) were acquired. COMPARISON: 01/16/2019 FINDINGS: Bones: No acute fractures or dislocations. Stable postsurgical changes from prior fixation of the t ibia. Visualized portions of the anterograde intramedullary justin and proximal interlocking screw appea r intact. No evidence for hardware loosening or failure. No suspicious bony lesions. Soft tissues: No substantial joint effusion. No suspicious soft tissue calcifications. IMPRESSION: Left knee without acute fracture or malalignment. Stable appearance of surgical fixation of the tibia without evidence for hardware loosening or failure. Reviewed by: Héctor Lawrence MD on 05/29/2020 4:17 PM PDT Approved by: Héctor Lawrence MD on 05/29/2020 4:17 PM PDT Station ID: [id number]
--- NOTE | 2020-05-29 16:22 | XRAY Report ---
PROCEDURE: Ankle 3 View LT INDICATIONS: LEFT ANKLE PAIN TECHNIQUE: 2 views of the ankle were acquired. COMPARISON: 07/21/2011 FINDINGS: Bones: No acute fractures or dislocations. Stable postsurgical changes from surgical fixation of the tibia with anterograde intramedullary justin fixation. Distal interlocking screws appear intact. Alignm ent is stable. Healed fracture deformities of the distal left fibula and tibia. No evidence for hardw are loosening or failure. Ankle mortise is normally aligned. No suspicious bony lesions. Soft tissues: No tibiotalar joint effusion. Achilles tendon appears normal. IMPRESSION: Left ankle without acute fracture or malalignment. Stable post surgical changes of ORIF of the distal left tibia and fibula without evidence for hardwar e complication. Reviewed by: Héctor Lawrence MD on 05/29/2020 4:20 PM PDT Approved by: Héctor Lawrence MD on 05/29/2020 4:20 PM PDT Station ID: [id number]
== END 2020-05-29 23:59 | disposition home or self-care (01) ==
LOC: DI 08:00
PROVIDERS: ATTEND Student in an Organized Health Care Education/Training Program
DX: M25.572 Pain in left ankle and joints of left foot (principal); M25.562 Pain in left knee; S82.302D Unspecified fracture of lower end of left tibia, subsequent encounter for closed fracture with routine healing

== ENCOUNTER 2021-03-06 17:59 | Outpatient (CLI) | payer MEDICAID | END 2021-03-06 18:00 | disposition home or self-care (01) | LOC: LAB 17:59 | PROVIDERS: ATTEND Obstetrics & Gynecology | DX: Z01.84 Encounter for antibody response examination (principal) | CPT/HCPCS: 36415; 81599; 86769 ==

== ENCOUNTER 2021-04-28 15:12 | Outpatient (CLI) | payer MEDICAID | END 2021-04-28 15:13 | disposition home or self-care (01) | LOC: COV 15:12 | PROVIDERS: ATTEND Obstetrics & Gynecology | DX: U07.1 COVID-19 (principal) ==

== ENCOUNTER 2021-10-17 08:03 | Outpatient (CLI) | payer MEDICAID ==
[2021-10-17 08:44] LABS: BUN - BLOOD UREA NITROGEN 8 mg/dL (6-20); CALCIUM 9.1 mg/dL (8.5-10.3); CARBON DIOXIDE - CO2 23 mmol/L (21-32); CHLORIDE 104 mmol/L (101-111); CHOL/HDL RATIO 4.7 (<4.4); CHOLESTEROL 212 mg/dL; CREATININE 0.7 mg/dL (0.4-1.0); GFR - MDRD 88 (>89); GLUCOSE 117 mg/dL (70-100); HDL CHOLESTEROL 45 mg/dL; LDL CHOLESTEROL,CALCULATED 107 mg/dL; LDL/HDL RATIO 2.4 (<4.4); POTASSIUM 4.4 mmol/L (3.5-5.0); SODIUM 135 mmol/L (135-145); TRIGLYCERIDES 301 mg/dL; VLDL CHOLESTEROL 60 mg/dL
== END 2021-10-17 08:04 | disposition home or self-care (01) ==
LOC: LAB 08:03
PROVIDERS: ATTEND Internal Medicine Cardiovascular Disease
DX: I25.10 Atherosclerotic heart disease of native coronary artery without angina pectoris (principal)
CPT/HCPCS: 36415; 80048; 80061; 83721

== ENCOUNTER 2023-10-28 08:42 | Outpatient (CLI) | payer MEDICAID ==
[2023-10-28 09:37] LABS: ALBUMIN 3.4 g/dL (3.2-5.5); ALBUMIN/GLOBULIN RATIO 0.8 (1.0-2.2); ALKALINE PHOSPHATASE 80 IU/L (42-121); ALT ALANINE AMINOTRANSFERASE 27 IU/L (10-60); AST ASPARTATE AMINOTRANSFERASE 46 IU/L (10-42); BILIRUBIN,TOTAL 0.9 mg/dL (0.2-1.0); BUN - BLOOD UREA NITROGEN 6 mg/dL (6-20); CALCIUM 9.5 mg/dL (8.5-10.3); CARBON DIOXIDE - CO2 24 mmol/L (21-32); CHLORIDE 105 mmol/L (101-111); CHOL/HDL RATIO 3.1 (<4.4); CHOLESTEROL 128 mg/dL; CREATININE 0.6 mg/dL (0.6-1.3); GFR - MDRD 105 (>89); GLUCOSE 167 mg/dL (74-104); HDL CHOLESTEROL 41 mg/dL; LDL CHOLESTEROL,CALCULATED 67 mg/dL; LDL/HDL RATIO 1.6 (<4.4); SODIUM 137 mmol/L (135-145); TOTAL PROTEIN 7.5 g/dL (6.4-8.9); TRIGLYCERIDES 102 mg/dL (48-352); VLDL CHOLESTEROL 20 mg/dL
[2023-10-28 09:49] LABS: THYROID STIMULATING HORMONE 1.74 uIU/mL (0.34-5.60)
[2023-10-28 15:35] LABS: BASOPHILS # (AUTO) 0.1 10^3/uL (0.0-0.1); BASOPHILS % (AUTO) 0.6 %; EOSINOPHILS # (AUTO) 0.2 10^3/uL (0.0-0.7); EOSINOPHILS % (AUTO) 1.6 %; HCT - HEMATOCRIT 39.3 % (37.0-47.0); HGB - HEMOGLOBIN 12.8 g/dL (12.0-16.0); LYMPHOCYTES # (AUTO) 4.3 10^3/uL (1.5-3.5); LYMPHOCYTES % (AUTO) 45.9 %; MEAN CORPUSCULAR HEMOGLOBIN 32.7 pg (27.0-31.0); MEAN CORPUSCULAR HGB CONC 32.6 g/dL (32.0-36.0); MEAN CORPUSCULAR VOLUME 100.3 fL (81.0-99.0); MEAN PLATELET VOLUME 10.8 fL (7.9-10.8); MONOCYTES # (AUTO) 0.8 10^3/uL (0.0-1.0); MONOCYTES % (AUTO) 8.9 %; NEUTROPHILS # (AUTO) 4.1 10^3/uL (1.5-6.6); NEUTROPHILS % (AUTO) 42.8 %; PLT - PLATELET COUNT 105 10^3/uL (130-450); RED BLOOD COUNT 3.92 10^6/uL (4.20-5.40); RED CELL DISTRIBUTION WIDTH 14.6 % (12.0-15.0); WHITE BLOOD COUNT 9.5 x10^3/uL (4.8-10.8)
== END 2023-10-28 08:43 | disposition home or self-care (01) ==
LOC: LAB 08:42
PROVIDERS: ATTEND Pediatrics
DX: I25.10 Atherosclerotic heart disease of native coronary artery without angina pectoris (principal); E03.9 Hypothyroidism, unspecified; E78.2 Mixed hyperlipidemia; I10 Essential (primary) hypertension
CPT/HCPCS: 36415; 80053; 80061; 82306; 83721; 84443; 85025; 86803

== ENCOUNTER 2023-10-28 15:31 | Outpatient (CLI) | payer MEDICAID ==
--- NOTE | 2023-10-28 21:32 | XRAY Report ---
PROCEDURE: Chest 2V INDICATIONS: CAD, SOB, L KNEE PAIN,L FOOT PAIN, LABS TECHNIQUE: 2 views of the chest were acquired. COMPARISON: Chest radiograph on March 07, 2020. FINDINGS: Surgical changes and devices: None. Lungs and pleura: No pleural effusions or pneumothorax. Lungs are clear. Mediastinum: Mediastinal contours appear normal. Heart size is normal. Bones and chest wall: No suspicious bony lesions. Overlying soft tissues appear unremarkable. Mild multilevel degenerative changes of the spine. IMPRESSION: No acute cardiopulmonary process. Reviewed by: Rosey Marino MD on 10/28/2023 9:30 PM PDT Approved by: Rosey Marino MD on 10/28/2023 9:30 PM PDT Station ID: [id number]
--- NOTE | 2023-10-28 21:34 | XRAY Report ---
PROCEDURE: Knee 3V LT INDICATIONS: CAD, SOB, L KNEE PAIN,L FOOT PAIN, LABS TECHNIQUE: 3 views of the knee(s) were acquired. COMPARISON: Knee radiograph on May 29, 2020. FINDINGS: Bones: No fractures or dislocations. Ossific density adjacent to the proximal fibular epiphysis lik pily represents an accessory ossicle or sequela of remote injury. Mild tricompartmental joint space na rrowing and tiny juxta-articular osteophytosis. Chondrocalcinosis in the medial and lateral compartme nts. Partially visualized intramedullary justin and interlocking screw fixation in the tibia. No suspici ous bony lesions. Soft tissues: No knee joint effusion. No suspicious soft tissue calcifications or masses. IMPRESSION: 1.No acute bony abnormality. 2.Mild tricompartmental osteoarthritis. Chondrocalcinosis in the medial and lateral compartments. 3.Partially visualized intramedullary justin and interlocking screw fixation in the tibia is intact, wit hout complication. Reviewed by: Rosey Marino MD on 10/28/2023 9:33 PM PDT Approved by: Rosey Marino MD on 10/28/2023 9:33 PM PDT Station ID: [id number]
--- NOTE | 2023-10-28 21:37 | XRAY Report ---
PROCEDURE: Foot 3+V LT INDICATIONS: CAD, SOB, L KNEE PAIN,L FOOT PAIN, LABS TECHNIQUE: 3 views of the foot were acquired. COMPARISON: Left foot radiograph on February 06, 2019 FINDINGS: Bones: No fractures or dislocations. Normal alignment on nonweightbearing view. No suspicious bony lesions. Partially visualized intramedullary justin and interlocking screw fixation of the distal tibia is intact with no perihardware lucency to suggest hardware loosening. Soft tissues: No tibiotalar joint effusion. Achilles tendon appears normal. IMPRESSION: 1.No acute bony abnormality. If clinical symptoms persist, consider repeat radiograph in 10-14 days v ersus cross-sectional imaging. 2.Partially visualized intramedullary justin and interlocking screw fixation of the distal tibia is inta ct, without complication. Reviewed by: Rosey Marino MD on 10/28/2023 9:36 PM PDT Approved by: Rosey Marino MD on 10/28/2023 9:36 PM PDT Station ID: [id number]
== END 2023-10-28 15:32 | disposition home or self-care (01) ==
LOC: DI 15:31
PROVIDERS: ATTEND Pediatrics
DX: M17.12 Unilateral primary osteoarthritis, left knee (principal); R06.02 Shortness of breath; I25.10 Atherosclerotic heart disease of native coronary artery without angina pectoris; M11.262 Other chondrocalcinosis, left knee; M79.672 Pain in left foot; E03.9 Hypothyroidism, unspecified; E78.2 Mixed hyperlipidemia; I10 Essential (primary) hypertension
CPT/HCPCS: 36415; 80053; 80061; 82306; 83721; 84443; 85025; 86803

== ENCOUNTER 2023-12-18 12:58 | Outpatient (CLI) | payer MEDICAID ==
--- NOTE | 2023-12-19 06:32 | DEXA Report ---
PROCEDURE: Dexa Spine and/or Hip INDICATIONS: POST MENOPAUSAL TECHNIQUE: Dual energy x-ray absorptiometry (DEXA) was performed in the regions detailed below. COMPARISON: None. FINDINGS: Lumbar Spine: Bone Mineral Density 1.208 g/cm/cm,T score 0.2. Normal Left Femoral Neck: Bone Mineral Density 0.937 g/cm/cm, T score -0.7. Normal Left Total Hip: Bone Mineral Density 1.029 g/cm/cm,T score 0.2. Normal (T score greater or equal to -1.0: NORMAL) (T score from -1.1 to -2.4: OSTEOPENIA) (T score less than or equal to -2.5 to: OSTEOPOROSIS) IMPRESSION: Normal bone mineralization Patients with diagnosis of osteoporosis or osteopenia should have regular bone mineral density assess ment. For those eligible for Medicare, routine testing is allowed once every 2 years. Testing frequ ency can be increased for patients who have rapidly progressing disease or for those who are receivin g medical therapy to restore bone mass. Reviewed by: Duy Lino MD on 12/19/2023 5:31 AM BINTA Approved by: Duy Lino MD on 12/19/2023 5:31 AM BINTA Station ID: [id number]
== END 2023-12-18 12:59 | disposition home or self-care (01) ==
LOC: DI 12:58
PROVIDERS: ATTEND Family Medicine
DX: N95.9 Unspecified menopausal and perimenopausal disorder (principal)

== ENCOUNTER 2023-12-24 14:44 | Emergency (ER) | payer MEDICAID ==
[2023-12-24 15:04] VITALS: BP 130/75; O2SAT 99
--- NOTE | 2023-12-24 16:16 | ED Physician Documentation ---
PD HPI HEENT - Stated complaint Stated Complaint: RT SIDE JAW/NECK PX/SWELLING - Chief complaint Chief Complaint: Heent - History obtained from History obtained from: Patient - Additional information Additional information: Patient is a 53-year-old female with a history of coronary artery disease presenting for evaluation of right lower dental pain. Patient states that she cracked a tooth about a week ago and that is been hurting more over the past 2 days. She has tried [id number] Medication without any improvement. Denies fever. Does not currently have a dentist.Has noted some pain is shooting into her jaw.Patient is on chronic pain meds at home and has been using hydrocodone. 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 : Chronic bladder infection HEENT: Chronic vision loss, Chronic sinusitis, Chronic hearing loss Psych: Depression, Anxiety, ADD/ADHD, Post traumatic stress disorder, Claustrophobia Musculoskeletal: Osteoarthritis, Other Derm: None - Past Surgical History Past Surgical History: Yes General: Cholecystectomy, Other Ortho: Other - Present Medications Home Medications: Ambulatory Orders Medication Instructions Recorded Confirmed Hydrocodone/Acetaminophen 1 tab PO QID PRN 05/27/15 01/16/19 [Hydrocodon-Acetaminoph 7.5-325] raNITIdine HCl [Zantac] 150 mg PO DAILY 28 Days tablet 05/31/15 01/16/19 ALPRAZolam [Xanax] 1 mg PO DAILY PRN 10/07/15 01/16/19 Atorvastatin Calcium 40 mg PO DAILY 03/11/18 01/16/19 Clopidogrel [Plavix] 75 mg PO DAILY 03/11/18 01/16/19 Metoprolol Tartrate 50 mg PO BID 03/11/18 01/16/19 Nitroglycerin 0.4 mg SL .Q5MIN PRN MDD 3 DOSES 03/11/18 01/16/19 lisinopriL [Lisinopril] 40 mg PO DAILY 03/11/18 01/16/19 Aspirin [Aspirin EC] 81 mg PO DAILY 01/16/19 01/16/19 Levothyroxine Sodium 25 mcg PO DAILY 01/16/19 01/16/19 Doxycycline Monohydrate 100 mg PO BID #14 tablet 07/18/19 Naproxen 375 mg PO BID #14 tablet 07/18/19 Ondansetron Odt [Zofran] 4 mg TL Q6H PRN #10 tablet 07/18/19 Oxycodone HCl/Acetaminophen 1 each PO Q6H PRN #14 tablet 07/18/19 [Percocet 5-325 mg Tablet] clindamycin HCL [Cleocin HCl] 300 mg PO QID #28 cap 12/24/23 - Allergies Allergies/Adverse Reactions: Allergies Allergy/AdvReac Type Severity Reaction Status Date / Time etodolac Allergy Unknown Verified 12/24/23 14:56 gabapentin Allergy Unknown Verified 12/24/23 14:56 iodine Allergy Unknown Verified 12/24/23 14:56 nortriptyline Allergy Unknown Verified 12/24/23 14:56 Penicillins Allergy Nausea Verified 12/24/23 14:56 shellfish derived Allergy Unknown Verified 12/24/23 14:56 Sulfa (Sulfonamide Allergy Hives Verified 12/24/23 14:56 Antibiotics) codeine AdvReac Itching Verified 12/24/23 14:56 methadone AdvReac Nausea Verified 12/24/23 14:56 - Social History Does the pt smoke?: Yes Smoking Status: Current every day smoker Does the pt drink ETOH?: Yes Does the pt have substance abuse?: No - Immunizations Immunizations are current?: No Immunizations: No immun - POLST Patient has POLST: No PD ED PE NORMAL - General General: Alert and oriented X 3, No acute distress, Well developed/nourished - HEENT HEENT: Atraumatic, Moist mucous membranes, Other (Poor dentition with multiple areas of erosion, cracked right lower molar, no oral swelling, fluctuance, No trismus) - Neck Neck: Supple, no meningeal sign - Cardiac Cardiac: RRR - Respiratory Respiratory: No respiratory distress, Clear bilaterally - Derm Derm: Warm and dry - Neuro Neuro: Normal speech Results - Vitals Vitals: Vital Signs - 24 hr 12/24/23 14:57 Temperature 36.5 C Heart Rate 63 Respiratory 16 Rate Blood Pressure 130/75 O2 Saturation 99 Oxygen O2 Source Room air PD Medical Decision Making - ED course ED course: Patient with right lower dental pain and cracked tooth. No visible abscess. No signs of cellulitis. No evidence of deep space infection. Patient to be started on antibiotics. She does have a penicillin allergy. Therefore we will start her on clindamycin. Patient already has pain medication at home. Patient given list of dental resources and advised on need for close follow-up with dentist. Advised on concerning symptoms to return for. Departure - Departure Disposition: Home, Self Care Clinical Impression: Dental infection Condition: Stable Instructions: ED Abscess Dental Prescriptions: clindamycin HCL [Cleocin HCl] 300 mg PO QID #28 cap Comments: I am starting you On an antibiotic for dental infection I have sent your prescription to [facility] in [place]. Return to the ER with worsening symptoms such as increased swelling. It is very important that you follow-up with a dentist. When it comes to dental problems like yours, the emergency department can only offer a short-term solution to your long-term problem. A couple of low cost options for dental care include: [facility] in [place], calls [phone] for an appointment Or [facility] in [place], call [phone] for an appointment. Forms: PCP List Discharge Date/Time: 12/24/23 16:34
[2023-12-24] MEDS: HYDROcod/ACETAM 5/325 MG TABLET PO STA (16:22)
== END 2023-12-24 16:34 | disposition home or self-care (01) ==
LOC: ED 14:44
DX: K04.7 Periapical abscess without sinus (principal); K08.89 Other specified disorders of teeth and supporting structures; I25.10 Atherosclerotic heart disease of native coronary artery without angina pectoris; I10 Essential (primary) hypertension; J45.909 Unspecified asthma, uncomplicated; Z79.02 Long term (current) use of antithrombotics/antiplatelets; Z79.899 Other long term (current) drug therapy; F17.200 Nicotine dependence, unspecified, uncomplicated
CPT/HCPCS: 99283; A9270

== ENCOUNTER 2023-12-26 19:52 | Emergency (ER) | payer MEDICAID ==
--- NOTE | 2023-12-26 22:07 | ED Physician Documentation ---
History of Present Illness - Stated complaint Stated Complaint: MOUTH PX - Chief complaint Chief Complaint: Heent - History obtained from History obtained from: Patient, Family - History of Present Illness Pain level max: 10 Pain level now: 10 - Additonal information Additional information: Patient is a 53-year-old female who states that she was seen here 2 days ago for dental pain. She states that she had cracked a tooth about a week prior to that. She states increasing pain tonight. She has been taking hydrocodone at home but that is not helping her pain. She is on clindamycin. Does not currently have an appointment with a dentist. She states that her entire right side of her face is painful, aching and throbbing. No difficulty with speech or swallowing. 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 : Chronic bladder infection HEENT: Chronic vision loss, Chronic sinusitis, Chronic hearing loss Psych: Depression, Anxiety, ADD/ADHD, Post traumatic stress disorder, Claustrophobia Musculoskeletal: Osteoarthritis, Other Derm: None - Past Surgical History Past Surgical History: Yes General: Cholecystectomy, Other Ortho: Other - Present Medications Home Medications: Ambulatory Orders Medication Instructions Recorded Confirmed Hydrocodone/Acetaminophen 1 tab PO QID PRN 05/27/15 01/16/19 [Hydrocodon-Acetaminoph 7.5-325] raNITIdine HCl [Zantac] 150 mg PO DAILY 28 Days tablet 05/31/15 01/16/19 ALPRAZolam [Xanax] 1 mg PO DAILY PRN 10/07/15 01/16/19 Atorvastatin Calcium 40 mg PO DAILY 03/11/18 01/16/19 Clopidogrel [Plavix] 75 mg PO DAILY 03/11/18 01/16/19 Metoprolol Tartrate 50 mg PO BID 03/11/18 01/16/19 Nitroglycerin 0.4 mg SL .Q5MIN PRN MDD 3 DOSES 03/11/18 01/16/19 lisinopriL [Lisinopril] 40 mg PO DAILY 03/11/18 01/16/19 Aspirin [Aspirin EC] 81 mg PO DAILY 01/16/19 01/16/19 Levothyroxine Sodium 25 mcg PO DAILY 01/16/19 01/16/19 Doxycycline Monohydrate 100 mg PO BID #14 tablet 07/18/19 Naproxen 375 mg PO BID #14 tablet 07/18/19 Ondansetron Odt [Zofran] 4 mg TL Q6H PRN #10 tablet 07/18/19 Oxycodone HCl/Acetaminophen 1 each PO Q6H PRN #14 tablet 07/18/19 [Percocet 5-325 mg Tablet] clindamycin HCL [Cleocin HCl] 300 mg PO QID #28 cap 12/24/23 - Allergies Allergies/Adverse Reactions: Allergies Allergy/AdvReac Type Severity Reaction Status Date / Time etodolac Allergy Unknown Verified 12/26/23 21:09 gabapentin Allergy Unknown Verified 12/26/23 21:09 iodine Allergy Unknown Verified 12/26/23 21:09 nortriptyline Allergy Unknown Verified 12/26/23 21:09 Penicillins Allergy Nausea Verified 12/26/23 21:09 shellfish derived Allergy Unknown Verified 12/26/23 21:09 Sulfa (Sulfonamide Allergy Hives Verified 12/26/23 21:09 Antibiotics) codeine AdvReac Itching Verified 12/26/23 21:09 methadone AdvReac Nausea Verified 12/26/23 21:09 - Social History Does the pt smoke?: Yes Smoking Status: Current every day smoker Does the pt drink ETOH?: Yes Does the pt have substance abuse?: No - Immunizations Immunizations are current?: No Immunizations: No immun - POLST Patient has POLST: No PD ED PE NORMAL - Vitals Vital signs reviewed: Yes - General General: Alert and oriented X 3, Other (Crying, appears in pain) - HEENT HEENT: PERRL, Moist mucous membranes, Other (Poor dentition throughout, the right posterior mandibular molar appears cracked. There is no drainable abscess. No swelling under the tongue. Normal phonation. No trismus.) - Neck Neck: Supple, no meningeal sign, No bony TTP - Cardiac Cardiac: RRR, Strong equal pulses - Respiratory Respiratory: No respiratory distress, Clear bilaterally - Abdomen Abdomen: Soft, Non tender, Non distended - Derm Derm: Warm and dry - Neuro Neuro: Alert and oriented X 3 - Psych Psych: Normal mood, Normal affect Results - Vitals Vitals: Vital Signs - 24 hr 12/26/23 12/26/23 20:03 23:25 Temperature 36.8 C 36.2 C L Heart Rate 78 68 Respiratory 16 16 Rate Blood Pressure 136/77 H 116/79 O2 Saturation 98 96 Oxygen O2 Source Room air PD Medical Decision Making - ED course Complexity details: reviewed old records, re-evaluated patient, considered differential, d/w patient ED course: Patient was given a dose of Dilaudid IM as well as oral. Cavitt was placed over the tooth. Pain improved. Given a dose of Rocephin IM. No drainable abscess. No Patrick's angina. Normal phonation. No trismus. No facial swelling. No stridor or wheezing. Recommend that she continue the clindamycin and follow-up closely with a dentist tomorrow. She is on hydrocodone 7.5 mg 4 times a day at home. States she does not want any stronger pain medication for home. Patient counseled regarding signs and symptoms for which I believe and urgent re- evaluation would be necessary. Patient with good understanding of and agreement to plan and is comfortable going home at this time This document was made in part using voice recognition software. While efforts are made to proofread this document, sound alike and grammatical errors may occur. Departure - Departure Disposition: 01 Home, Self Care Clinical Impression: Dental infection Condition: Good Instructions: ED Tooth Pain Follow-Up: your,dentist tomorrow [Other] Comments: You are given a dose of Rocephin tonight. Continue the clindamycin. You were also given Dilaudid tonight for pain. Cavitt was placed over your tooth, this will help to cover the exposed nerve which often helps with the pain. Please continue your current medications at home including her hydrocodone. Please return if you worsen. Forms: PCP List Discharge Date/Time: 12/26/23 23:30
[2023-12-26] MEDS: cefTRIAXone 1 GM VIAL IM STA (22:27)
[2023-12-26] MEDS: HYDROmorphone 1 MG/ML CARPUJECT IM STA (22:27)
[2023-12-26] MEDS: LIDOCAINE 1% 2 ML VIAL MC ONE (22:27)
[2023-12-26] MEDS: HYDROmorphone 2 MG TABLET PO STA (23:08)
[2023-12-26 23:34] VITALS: BP 116/79; O2SAT 96
== END 2023-12-26 23:30 | disposition home or self-care (01) ==
LOC: ED 19:52
DX: K04.7 Periapical abscess without sinus (principal); I10 Essential (primary) hypertension; I49.9 Cardiac arrhythmia, unspecified; J45.909 Unspecified asthma, uncomplicated; Z79.02 Long term (current) use of antithrombotics/antiplatelets; Z79.899 Other long term (current) drug therapy; F17.200 Nicotine dependence, unspecified, uncomplicated
CPT/HCPCS: 96372; 99283; A9270; J1170